=== PATIENT | male | born 1990 | race Caucasian/White ===

== ENCOUNTER 2022-09-11 13:45 | Outpatient (REF) | payer MEDICAID, SELFPAY ==
--- NOTE | ~2022-09-11 | US_ITS ---
Left breast ultrasound is included in a single combined report with the diagnostic bilateral mammography under accession number [id number].
--- NOTE | ~2022-09-11 | MM_ITS ---
EXAMINATION: MM DIAGNOSTIC DIGITAL BREAST TOMOSYNTHESIS, BILATERAL US DIAGNOSTIC ULTRASOUND BREAST, LEFT CLINICAL INFORMATION: 32-year-old male with recent tenderness and palpable concern 1:00 periareolar left breast. No discharge. No prior breast imaging. COMPARISON: None (current study represents initial baseline exam). TECHNIQUE: Digital breast tomosynthesis is performed in both the craniocaudal and mediolateral oblique views along with computer-aided detection (CAD). Synthesized 2D images are generated from the tomosynthesis. Ultrasound left breast is targeted to the retroareolar and periareolar region. Comparison imaging performed retroareolar and periareolar right breast at time of real-time imaging. Grayscale imaging and color Doppler are performed without and with harmonics. FINDINGS: There are scattered areas of fibroglandular density (ACR BI-RADS breast composition Category b). There is some mild bilateral gynecomastia beneath the nipples, slightly greater on left. There is no mass or architectural abnormality. No skin thickening or coarsening of the stromal markings. The axilla are unremarkable. Ultrasound demonstrates no cystic or solid mass or architectural abnormality. No skin thickening or edema tracking in soft tissue planes. There is trace subareolar gynecomastia corresponding to the mammography. Results are discussed with the patient at time of visit. MM/MM tomosynthesis diagnostic BI IMPRESSION: -Mild bilateral gynecomastia, slightly greater on left. ASSESSMENT: BI-RADS 2: Benign RECOMMENDATION: -Patient should be managed based on the clinical impression. -If clinically indicated, further evaluation may be considered with surgical consult. Decision to proceed with biopsy should be based on clinical grounds and degree of clinical concern. This patient's information was entered into a reminder system with a target due date for their next mammogram.
== END 2022-09-11 13:46 | disposition home or self-care (01) ==
LOC: HO.MAMMO 13:45
PROVIDERS: PCP Internal Medicine; Visit Provider Pediatrics
DX: N63.21 Unspecified lump in the left breast, upper outer quadrant (principal); E29.1 Testicular hypofunction
CPT/HCPCS: 76642; 77062; 77066

== ENCOUNTER 2022-09-20 20:37 | Emergency (ER) | payer MEDICAID, SELFPAY ==
[2022-09-20 20:58] VITALS: BP 142/72; PULSE 91; RESP 18; TEMP 36.5; O2SAT 98; BMI 35.6
--- NOTE | 2022-09-20 20:59 | ED.GENADULT ---
HPI - General Adult General Chief complaint: Upper Respiratory Symptoms Stated complaint: Rash Time Seen by Provider: 09/20/22 21:04 Source: patient Mode of arrival: ambulatory Limitations: no limitations History of Present Illness HPI narrative: Patient is a 32 year old assigned male at with no reported medical history presenting to the emergency department today with a rash and needing his prescriptions resent. Patient states that he was seen somewhere else earlier today for a constant cough he's had for weeks. Patient states that where he was seen earlier sent in prednisone, antibiotics, and an inhaler but it was at a [employer] and he needs it sent to a [facility] because that [place] is now closed. Patient states that this rash is where his belt rubs and he just wants cortisone cream. Patient denies any dizziness, lightheadedness, abdominal pain, nausea, vomiting, fever, chills, blurry vision, double vision, loss of vision, chest pain, difficulty breathing, shortness of breath, back pain, night sweats, pain with urination, increased urinary frequency, increased urinary urgency, blood in his urine or stool, syncope or a near syncopal episode, recent trauma or falls, bowel incontinence, bladder incontinence, bowel retention, bladder retention, or any other complaints at this time. Severity: mild Severity scale (1-10): 2 Relieving factors: none Exacerbating factors: none Associated symptoms: cough and rash Treatments prior to arrival: none Related Data Home Medications Medication Instructions Recorded Confirmed tamsulosin 0.4 mg capsule 0.4 mg PO DAILY 09/09/22 Previous Rx's Medication Instructions Recorded albuterol sulfate 90 mcg/actuation 1 inh inhalation QID PRN shortness 09/20/22 aerosol inhaler of breath or wheezing #8.5 grams doxycycline hyclate 100 mg tablet 100 mg PO BID 7 days #14 tabs 09/20/22 hydrocortisone 2.5 % topical cream 1 appl topical BID PRN rash #28 09/20/22 grams prednisone 20 mg tablet 20 mg PO DAILY 7 days #7 tabs 09/20/22 Allergies Allergy/AdvReac Type Severity Reaction Status Date / Time No Known Allergies Allergy Verified 09/20/22 20:58 [No Known Allergies*] Review of Systems Constitutional: Constitutional: Reports no additional constitutional complaints, Denies chills, Denies fever(s) and Denies night sweats Eyes: Eyes: Reports no additional eye complaints, Denies blurry vision, Denies change in vision, Denies diplopia, Denies eye discharge, Denies loss of vision and Denies eye pain ENT: Denies dizziness Cardiovascular: Cardiovascular: Reports no additional cardiovascular complaints, Denies chest pain, Denies lightheadedness, Denies Loss of Consciousness and Denies dyspnea Respiratory: Respiratory: Reports no additional respiratory complaints, Reports cough and Denies dyspnea Gastrointestinal: Gastrointestinal: Reports no additional gastrointestinal complaints, Denies abdominal pain, Denies melena, Denies hematochezia, Denies change in bowel habits and Denies change in stool character Genitourinary: Genitourinary: Reports no additional male genitourinary complaints, Denies hematuria, Denies oliguria, Denies difficulty urinating, Denies dysuria, Denies urinary frequency, Denies urinary hesitancy, Denies urinary incontinence and Denies urinary urgency Musculoskeletal: Musculoskeletal: Reports no additional musculoskeletal complaints, Denies numbness and Denies tingling Integumentary/Breasts: Skin/Breast: Reports rash Neurologic: Denies dizziness, Denies loss of vision, Denies numbness and Denies tingling Psychiatric: Psychiatric: Reports no additional psychiatric complaints Endocrine: Endocrine: Reports no additional endocrine complaints Hematologic/Lymphatic: Hematologic/Lymphatic: Reports no additional hematologic/lymphatic complaints Allergic/Immunologic: Allergic/Immunologic: Reports no additional allergic/immunologic complaints PMFSH Past Medical History Attestation statement: The following information was validated with the patient. Source: old records reviewed and nursing notes reviewed Medical History Arthritis Carpal tunnel syndrome on both sides Nephrolithiasis Surgical History History of arthroscopy Social History Social History Advance Directives: No Advance Directives Information Provided: No Physical Exam ED Vital Signs: Vital Signs - 24 hr 09/20/22 20:58 Temperature 97.7 F Pulse Rate 91 Respiratory Rate 18 Blood Pressure 142/72 H Pulse Oximetry 98 Oxygen Delivery Method Room Air BMI result Body Mass Index 35.6 Const General: cooperative, no acute distress, alert and awake Nutritional Appearance: well nourished Orientation/consciousness: patient oriented x3 Limitations: no limitations HENMT Head: Yes normal to inspection and Yes atraumatic Ears: hearing grossly normal bilaterally and external ears normal General nose exam: Normal external nose present, no nasal discharge noted and no epistaxis Face and sinus: Yes normal facial exam, No abrasion and No laceration Mouth: Normal oral and palatal mucosa present, no drooling and no muffled voice Eyes General: appearance normal, both eyes and all related structures Periorbital: periorbital findings normal Eyelids: Yes eyelids normal Conjunctivae: conjunctivae normal Pupils: Equal, round and reactive pupils present EOM: EOMs intact bilaterally Neck Neck: Yes normal visual inspection, Yes full ROM and Yes no lymphadenopathy Chest Chest palpation & inspection: normal inspection of the chest Resp Effort & Inspection: normal respiratory effort and able to speak in complete sentences Auscultation: clear to auscultation bilaterally GI Inspection: Yes normal to inspection Palpation (GI): Soft to palpation Skin Other: small area of eczema to lower abdomen, no open areas Neuro General: patient oriented x3 and moves all extremities Cranial nerves: Yes Equal, round and reactive pupils present Cognition (Neuro): normal cognition Motor exam (neuro): 5/5 motor strength present throughout Sensory Exam: Normal double simultaneous stimulation for sensation Coordination: [id number] test normal Extrem General: Yes normal to inspection, Yes full ROM and Yes capillary refill normal Psych Appearance: grossly normal Mental Status: mental status grossly normal Affect: normal affect Attitude: cooperative Thought process: Normal thought process present Thought content: Normal thought content present Insight: Good insight present (Psych) Medical Decision Making Medical Decision Making MDM Narrative: Patient is a 32 year old assigned male at with no reported medical history presenting to the emergency department today with requesting medications to be sent in again and a rash. Patient's physical exam showed a small eczema rash to the lower abdomen. I explained my physical exam findings to the patient. I answered all questions asked by the patient. I stressed the importance of the patient taking his medication as prescribed. I stressed the importance of the patient following up with his primary care provider. I stressed the importance of the patient returning to the emergency department immediately if his symptoms were to worsen or if he were to develop any dizziness, shortness of breath, difficulty breathing, chest pain, blurry vision, loss of vision, nausea, vomiting, abdominal pain, fever, chills, back pain, or any other complaints. Patient verbalized agreement and understanding with this treatment plan and discharge. Differential Diagnosis Differential Diagnoses: The differential diagnosis associated with the presentation includes Eczema, URI Discharge Plan Discharge Clinical Impression: URI (upper respiratory infection) Patient Disposition: Home, Self-Care Instructions: Eczema (ED), Upper Respiratory Infection (ED) Additional Instructions: Follow up with your primary care provider. Return to the emergency department immediately if your symptoms worsen or if you develop any dizziness, shortness of breath, difficulty breathing, chest pain, blurry vision, loss of vision, nausea, vomiting, abdominal pain, fever, chills, back pain, or any other complaints. Prescriptions: New prednisone 20 mg tablet 20 mg PO DAILY 7 Days Qty: 7 0RF doxycycline hyclate 100 mg tablet 100 mg PO BID 7 Days Qty: 14 0RF albuterol sulfate 90 mcg/actuation HFA aerosol inhaler 1 inh inhalation QID PRN (Reason: shortness of breath or wheezing) Qty: 8.5 0RF hydrocortisone 2.5 % cream 1 appl topical BID PRN (Reason: rash) Qty: 28 0RF No Action tamsulosin 0.4 mg capsule 0.4 mg PO DAILY Referrals: John Mcintosh MD [Primary Care Provider] - Stand Alone Forms: Work/School Release Interventions: ED Discharge Assessment Last Done: 09/20/22 21:11 Discharge Date/Time: 09/20/22 21:12 Print Language: Croatian
--- NOTE | 2022-09-20 21:04 | PC.NURSE ---
pt a&ox3, vss, rx called into [facility], [facility], discussed insurance options vs good rx.
== END 2022-09-20 21:12 | disposition home or self-care (01) ==
LOC: HO.ED 21:08
PROVIDERS: Emergency Provider Student in an Organized Health Care Education/Training Program; PCP Internal Medicine
DX: J06.9 Acute upper respiratory infection, unspecified (principal); L30.9 Dermatitis, unspecified
CPT/HCPCS: 99282; 99283

== ENCOUNTER → 2022-10-10 12:40 | Outpatient (BNVA) | payer MEDICAID, SELFPAY | PROVIDERS: PCP Internal Medicine; Visit Provider Urology | DX: Z12.5 Encounter for screening for malignant neoplasm of prostate (principal); N52.9 Male erectile dysfunction, unspecified; E29.1 Testicular hypofunction | CPT/HCPCS: 99202 ==

== ENCOUNTER 2022-10-22 10:05 | Outpatient (REF) | payer MEDICAID, SELFPAY | END 2022-10-22 10:06 | disposition home or self-care (01) | LOC: HO.LAB 10:05 | PROVIDERS: PCP Internal Medicine; Visit Provider Urology | DX: Z13.89 Encounter for screening for other disorder (principal) ==

== ENCOUNTER → 2022-10-31 09:06 | Outpatient (BNVA) | payer MEDICAID, SELFPAY | PROVIDERS: PCP Internal Medicine; Visit Provider Urology | DX: N52.9 Male erectile dysfunction, unspecified (principal); E29.1 Testicular hypofunction | CPT/HCPCS: 99212 ==

== ENCOUNTER 2022-11-06 22:14 | Emergency (ER) | payer MEDICAID, SELFPAY ==
[2022-11-06 22:18] VITALS: BP 132/67; PULSE 86; RESP 18; TEMP 36.7; O2SAT 97; BMI 34.9
[2022-11-07] MEDS: Fluorescein Sodium STRIP 1 STRIP EYE-RIGHT (01:03)
[2022-11-07] MEDS: Tetracaine HCl/PF 0.5% Oph Sol 4 ML DROPS 1 DROP EYE-BOTH (01:03)
--- NOTE | 2022-11-07 01:07 | ED_ITS ---
HPI - Eye Problem General Chief complaint: Eye Problems Stated complaint: [place] eye? Time Seen by Provider: 11/07/22 00:49 Source: patient Mode of arrival: ambulatory Limitations: no limitations History of Present Illness HPI Narrative: Patient comes to the emergency room complaining of left-sided eye redness that started last night. Patient states the progressively it is getting more red. Patient states he has minimal discharge, no significant pain, denies any injury. Related Data Previous Rx's Medication Instructions Recorded needle (disp) 18 G 18 gauge x 1 #30 ea 10/31/22 12 (BD Regular Bevel [place]) needle (disp) 22 G 22 gauge x 1 #30 ea 10/31/2207/14 (BD Regular Bevel [place]) syringe (disposable) 1 mL (BD #30 ea 10/31/22 Luer-Amie Syringe) testosterone cypionate 200 mg/mL 100 mg (0.5 mL) IM QWEEK 4 weeks 10/31/22 intramuscular oil #2 mL (Depo-Testosterone) erythromycin 5 mg/gram (0.5 %) eye 0.5 inch ophthalmic (eye) TID #50 11/07/22 ointment grams ibuprofen 400 mg tablet 400 mg PO Q6H PRN pain #14 tabs 11/07/22 Allergies Allergy/AdvReac Type Severity Reaction Status Date / Time No Known Allergies Allergy Verified 11/06/22 22:22 [No Known Allergies*] Review of Systems Review of Systems: Constitutional : No Weight loss, No Fever, No Chills, No Night Sweats, No Fatigue, No Malaise ENT/Mouth : No Hearing loss, No Ear Pain, No Nasal Congestion, No Sinus Pain, No Hoarseness, No sore throat, No Rhinorrhea, No Swallowing Difficulty Eyes: No Eye Pain, No Swelling, complaining of scleral redness Cardiovascular : No Chest Pain, No SOB, No Dyspnea on Exertion, No Orthopnea, No Edema, No Palpitations Respiratory : No Cough, No Sputum, No Wheezing, No Smoke Exposure, No Dyspnea Gastrointestinal : No Nausea, No Vomiting, No Diarrhea, No Constipation, No abdominal Pain, No Hematochezia, No Melena Genitourinary : no irregular bleeding, No Dysuria, No Urinary Frequency, No Hematuria, No Urinary Incontinence, No Urgency, No Flank Pain, No Urinary Flow Changes, No Hesitancy Musculoskeletal : No joint pain, No Myalgias, No Joint Swelling Skin : No Skin Lesions, No rash Neuro : No Weakness, No Numbness, No Paresthesias, No Loss of Consciousness, No Dizziness, No Headache Psych : No Anxiety/Panic, No Depression, No SI/HI/AH/VH, No Social Issues, Heme/Lymph: No Bruising, No Bleeding,No Lymphadenopathy Endocrine : No Polyuria, No Polydipsia, No Temperature Intolerance [facility] Past Medical History Medical History Arthritis Carpal tunnel syndrome on both sides Nephrolithiasis Surgical History History of arthroscopy Social History Social History Advance Directives: No Advance Directives Information Provided: Yes Physical Exam Vital Signs: Vital Signs: Last Vital Signs Temp 98.1 F 11/06/22 22:18 Pulse 86 11/06/22 22:18 Resp 18 11/06/22 22:18 BP 132/67 11/06/22 22:18 Pulse Ox 97 11/06/22 22:18 O2 Del Method Room Air 11/06/22 22:18 BMI result Body Mass Index 34.9 Const: Other: Appearance: Alert. Oriented X3. No acute distress. Eyes: Pupils equal, round and reactive to light. The sclera lateral aspect of the left eye is erythematous, there is a nodule, mild discharge, eye pressure 60 mmHg, on fluorescein stain test, no corneal abrasion ENT: Pharynx normal. Neck: Normal inspection. Neck supple. No lymph nodes noted. No crepitus CVS: Normal heart rate and rhythm. Pulses normal. Normal S1 and S2 Respiratory: No respiratory distress. Breath sounds normal. No Wheezing. No rales Abdomen: Soft and nontender. No rigidity. No distention. Skin: Skin warm and dry. Normal skin color. Normal skin turgor. Extremities: No lower extremity edema. No Lacerations. No Rash Neuro: Oriented X 3. No motor deficit. No sensory deficit. Moving all extremities. No slurred speech. CN 2 through 12 grossly intact Psych: calm, cooperative, normal affect Medications Administered Discontinued Medications Generic Name Dose Route Start Last Admin Trade Name Freq PRN Reason Stop Dose Admin Fluorescein Sodium 1 strip 11/07/22 00:52 11/07/22 01:03 Fluorescein Sodium Strip EYE-RIGHT 11/07/22 00:53 1 strip ONCE ONE Administration Tetracaine HCl 1 drop 11/07/22 00:52 11/07/22 01:03 Tetracaine Hcl/Pf 0.5% Oph Yoanna 4 Ml Drops EYE-BOTH 11/07/22 00:53 1 drop ONCE ONE Administration Medical Decision Making Medical Decision Making [facility] Narrative: -I discussed the physical exam with the patient, 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 If you have any worsening or new symptoms, please return to the emergency room or call 911 Prescriptions: New erythromycin 5 mg/gram (0.5 %) ointment 0.5 inch ophthalmic (eye) TID Qty: 50 0RF ibuprofen 400 mg tablet 400 mg PO Q6H PRN (Reason: pain) Qty: 14 0RF No Action (DME) BD Regular Bevel [place] 18 gauge x 1 1/2 needle See Rx Instructions .MEDSUPPLY Qty: 30 0RF Rx Instructions: As directed (DME) BD Regular Bevel [place] 22 gauge x 1 1/2 needle See Rx Instructions .MEDSUPPLY Qty: 30 0RF Rx Instructions: For testosterone injection weekly (DME) BD Luer-Amie Syringe 1 mL syringe See Rx Instructions .MEDSUPPLY Qty: 30 0RF Rx Instructions: Testosterone injection weekly testosterone cypionate [Depo-Testosterone] 200 mg/mL oil 100 mg IM QWEEK 28 Days Qty: 2 5RF
== END 2022-11-07 01:45 | disposition home or self-care (01) ==
PROVIDERS: Emergency Provider Emergency Medicine; PCP Internal Medicine
DX: H15.002 Unspecified scleritis, left eye (principal)
CPT/HCPCS: 99282; 99283

== ENCOUNTER 2023-02-03 08:56 | Outpatient (REF) | payer MEDICAID, SELFPAY ==
[2023-02-03 14:23] LABS: Appearance Urine Clear; Color Urine Dark Yellow; Glucose Urine UA Negative (Negative); Leukocyte Esterase Urine Negative (Negative); Nitrite Urine Negative (Negative); PH 6.5 (5.0-9.0); Urine Blood Negative (Negative); Urine Ketones Negative (Negative); Urine Protein Trace mg/dL (Neg-Trace)
[2023-02-03 17:42] LABS: Prostate Specific Antigen 0.42 ng/mL (<0.05-4.0)
[2023-02-04 20:53] LABS: Sex Hormone Binding Globulin 10 nmol/L (10-50)
[2023-02-04 22:18] LABS: Follicle Stimulating Hormone <0.7 mIU/mL (1.6-8.0); Lutenizing Hormone <0.2 mIU/mL (1.5-9.3)
[2023-02-08 17:43] LABS: Testosterone, Free 89.6 pg/mL (35.0-155.0); Testosterone, Total 337 ng/dL (250-1100)
[2023-02-13 21:44] LABS: Estradiol Free 0.94 pg/mL; Estradiol, Ultrasensitive 29 pg/mL (< OR = 29)
== END 2023-02-03 08:57 | disposition home or self-care (01) ==
LOC: HO.CHCLDS 08:56
PROVIDERS: Absent Provider Urology; Visit Provider Internal Medicine
DX: Z12.5 Encounter for screening for malignant neoplasm of prostate (principal); E29.1 Testicular hypofunction
CPT/HCPCS: 36415; 81003; 82670; 82681; 83001; 83002; 84146; 84153; 84270; 84402; 84403

== ENCOUNTER 2023-02-11 11:00 | Outpatient (AMB) | payer MEDICAID, SELFPAY ==
--- NOTE | 2023-02-11 11:01 | A.OFFVIS_ITS ---
Intake Intake Visit Reasons: Labs Follow up Intake Note: Patient is present for Telephone labs Urology Med: Testosterone Antibiotic Allergy: none Blood Thinner: none [facility] Allergies No Known Allergies [No Known Allergies*] Allergy (Verified 11/06/22 22:22) Medication List - Last Reconciled 02/11/23 by Suleman Colin MD erythromycin 0.5 inches ophthalmic (eye) TID ibuprofen 400 mg PO Q6H PRN needle (disp) 18 G (BD Regular Bevel [place]) As directed needle (disp) 22 G (BD Regular Bevel [place]) For testosterone injection weekly syringe (disposable) (BD Luer-Amie Syringe) Testosterone injection weekly testosterone cypionate (Depo-Testosterone) 100 mg (0.5 mL) IM QWEEK 4 weeks HPI HPI Comments History of Present Illness Details Jd is male. He is a patient of . 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 Previously taken testosterone exogenous - including nandralone Prior supplement use Also with weekly marijuana use Prior complains of nipple discharge Laboratories - 05/31 T 397 F 77 - 11/02 T 150, FT 27 - 02/01 T 340 FT 90 FSH <0.1 LH <0.2 SHBG 10 PFSH Medical History Arthritis Carpal tunnel syndrome on both sides Nephrolithiasis Surgical History History of arthroscopy Assessment & Plan Assessment & Plan (1) Erectile disorder: Code(s): N52.9 - Male erectile dysfunction, unspecified (2) Hypogonadism in male: Code(s): E29.1 - Testicular hypofunction Plan Refill testosterone Start HCG 6 month follow-up labs Orders: Orders Prolactin 02/06/23 E29.1 - Testicular hypofunction Lutenizing Hormone 02/06/23 E29.1 - Testicular hypofunction Glucose Fasting 02/06/23 E29.1 - Testicular hypofunction Estradiol Ultra Sensitive 02/06/23 E29.1 - Testicular hypofunction Follicle Stimulating Hormone 02/06/23 E29.1 - Testicular hypofunction PSA,Total (Free>4and<10) 02/06/23 E29.1 - Testicular hypofunction, Z12.5 - Encounter for screening for malignant neoplasm of prostate Sex Hormone Binding Globulin 01/20/23 E29.1 - Testicular hypofunction Estradiol Ultra Sensitive 6 Months E29.1 - Testicular hypofunction Testosterone, Free/Total 6 Months E29.1 - Testicular hypofunction Complete Blood Count no Diff 6 Months E29.1 - Testicular hypofunction Medications: New Pregnyl (chorionic gonadotropin, human) 10,000 mix in 5cc of NSal Inject 0.5cc (1000 units) 2x a week intramuscular 500 units IM 2XW 2 ea 1RF Low T - fertility preservation 10 weeks NS E29.1 - Testicular hypofunction Refilled testosterone cypionate (Depo-Testosterone) 100 mg (0.5 mL) IM QWEEK 4 weeks 2 mL 5RF E29.1 - Testicular hypofunction, [id number] Patient Instructions: Imaging studies, laboratory and physical exam results were discussed and reviewed in detail. No major barriers to patient understanding were identified. An opportunity to ask questions regarding the treatment plan was provided. All questions were answered. The patient expressed understanding and agreement with the above treatment plan. The patient is aware they should contact our office by phone for worsening of their current condition or the appearance of new urologic symptoms. Compliance is encouraged with any medications and followup testing that is ordered. It is a privilege to participate in the urologic care of your patient. If you have any questions or concerns regarding treatment for the above conditions, or other urologic issues, please do not hesitate to contact me. The office telephone contact is [phone]. This note is constructed using voice recognition software. While every effort has been made to ensure accuracy business liaison manager errors may have been included. Yours sincerely, Dr Suleman Colin MD, [facility] - Urology Providers of Expert, Compassionate Care for the Genitourinary System Telehealth Telehealth Location of provider rendering services: practice address Location of patient: address on file Patient Identification confirmed using: Name, : Yes Telehealth method: video Patient verbally consented to treatment: Yes Patient verbally consented to billing insurance company: Yes Patient informed of any privacy concerns related to visit: Yes Coding Level of Care Code Tele Est Pt Level 4 (15575) Diagnoses Erectile disorder N52.9 Hypogonadism in male E29.1
== END 2023-02-11 11:39 | disposition home or self-care (01) ==
LOC: HO.HUSH 11:00
PROVIDERS: PCP Internal Medicine; Visit Provider Urology
DX: N52.9 Male erectile dysfunction, unspecified (principal); E29.1 Testicular hypofunction
CPT/HCPCS: 99214

== ENCOUNTER → 2023-02-11 11:00 | Outpatient (BNVA) | payer MEDICAID, SELFPAY | PROVIDERS: PCP Internal Medicine; Visit Provider Urology ==

== ENCOUNTER 2023-08-19 08:35 | Outpatient (REF) | payer MEDICAID, SELFPAY ==
[2023-08-19 14:43] LABS: Hematocrit 47.6 % (42.0-52.0); Hemoglobin 16.7 g/dl (14.0-18.0); Mean Corpuscular HGB Conc 35.1 g/dl (31.0-36.0); Mean Corpuscular Hemoglobin 30.8 pg (27.0-33.0); Mean Corpuscular Volume 87.7 fL (80.0-98.0); Mean Platelet Volume 10.9 fL (9.4-12.4); Platelet Count 164 X10*3/uL (160-400); Red Blood Count 5.43 X10*6/uL (4.60-5.80); Red Cell Distribution Width 14.5 % (11.0-16.0); White Blood Count 5.5 X10*3/uL (4.8-10.8)
[2023-08-24 02:20] LABS: Estradiol Ultra Sensitive 20 pg/mL (< OR = 29)
[2023-08-24 13:39] LABS: Testosterone, Free 53.1 pg/mL (35.0-155.0); Testosterone, Total 236 ng/dL (250-1100)
== END 2023-08-19 08:36 | disposition home or self-care (01) ==
LOC: HO.CHCLDS 08:35
PROVIDERS: Visit Provider Urology
DX: E29.1 Testicular hypofunction (principal)
CPT/HCPCS: 36415; 82670; 84402; 84403; 85027

== ENCOUNTER 2023-09-16 08:15 | Outpatient (AMB) | payer MEDICAID, SELFPAY ==
--- NOTE | 2023-09-16 08:16 | A.OFFVIS_ITS ---
Intake Intake Visit Reasons: labs follow up(set) Intake Note: Patient presents today for a telehealth follow-up on labs Meds- Testosterone Allergies to Antibiotic- No Known Allergies Machine Captain Required: No Allergies No Known Allergies [No Known Allergies*] Allergy (Verified 09/16/23 08:17) Medication List - Last Reconciled 09/16/23 by Suleman Colin MD erythromycin 0.5 inches ophthalmic (eye) TID ibuprofen 400 mg PO Q6H PRN needle (disp) 18 G (BD Regular [place]vel [place]) As directed needle (disp) 18 G (BD Regular Bevel [place]) As directed - draw up testosterone needle (disp) 22 G (BD Regular Bevel [place]) For testosterone injection weekly Pregnyl (chorionic gonadotropin, human) 500 units IM 2XW 10 weeks NS safety needles (Easy Touch FlipLock Needle) As directed - administer testosterone syringe (disposable) (BD Luer-Amie Syringe) Testosterone injection weekly testosterone cypionate (Depo-Testosterone) 100 mg (0.5 mL) IM QWEEK 4 weeks HPI HPI Comments History of Present Illness Details Jd is male. He is a patient of . He is seen for the following urologic conditions - hypogonadism Telemedicine Evaluation 15 min Consultation Doximity Andrés Video attempted Total testosterone low. Low normal free testosterone. 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 Previously taken testosterone exogenous - including nandralone Prior supplement use Also with weekly marijuana use Prior complains of nipple discharge Laboratories - 05/31 T 397 F 77 - 11/02 T 150, FT 27 - 02/01 T 340 FT 90 FSH <0.1 LH <0.2 SHBG 09/05 (wed) T 236, FT 53 PFSH Medical History Arthritis Carpal tunnel syndrome on both sides Nephrolithiasis Surgical History History of arthroscopy Review of Systems Const All systems reviewed & are unremarkable except as noted in HPI and below Reports no additional complaints Resp Reports no additional complaints GI Reports no additional complaints Reports as per HPI Musc Reports no additional complaints Physical Exam Telemedicine evaluation Appropriate responses Regular breathing rate and rhythm HEENT Head: Yes normal to inspection Ears: hearing grossly normal bilaterally Eyes General: appearance normal, both eyes and all related structures Neck Neck: Yes normal visual inspection Chest Chest palpation & inspection: normal inspection of the chest Resp Effort & Inspection: normal respiratory effort and able to speak in complete sentences Assessment & Plan Assessment & Plan (1) Erectile disorder: Code(s): N52.9 - Male erectile dysfunction, unspecified (2) Hypogonadism in male: Code(s): E29.1 - Testicular hypofunction Plan Six-month follow-up Orders: Orders Prostate Specific Antigen 6 Months E29.1 - Testicular hypofunction Testosterone, Total 6 Months E29.1 - Testicular hypofunction Complete Blood Count no Diff 6 Months E29.1 - Testicular hypofunction Medications: New safety needles (Easy Touch FlipLock Needle) As directed - administer testosterone 30 ea 0RF E29.1 - Testicular hypofunction needle (disp) 18 G (BD Regular Bevel [place]) As directed - draw up testosterone 30 ea 0RF E29.1 - Testicular hypofunction Refilled testosterone cypionate (Depo-Testosterone) discard excess oil 100 mg (0.5 mL) IM QWEEK 4 mL 5RF 4 weeks E29.1 - Testicular hypofunction, [id number] Patient Instructions: Imaging studies, laboratory and physical exam results were discussed and reviewed in detail. No major barriers to patient understanding were identified. An opportunity to ask questions regarding the treatment plan was provided. All questions were answered. The patient expressed understanding and agreement with the above treatment plan. The patient is aware they should contact our office by phone for worsening of their current condition or the appearance of new urologic symptoms. Compliance is encouraged with any medications and followup testing that is ordered. It is a privilege to participate in the urologic care of your patient. If you have any questions or concerns regarding treatment for the above conditions, or other urologic issues, please do not hesitate to contact me. The office telephone contact is [phone]. This note is constructed using voice recognition software. While every effort has been made to ensure accuracy cane feeder errors may have been included. Yours sincerely, Dr Suleman Colin MD, [facility] - Urology Providers of Expert, Compassionate Care for the Genitourinary System Telehealth Telehealth Location of provider rendering services: practice address Location of patient: address on file Patient Identification confirmed using: Name, : Yes Telehealth method: video Patient verbally consented to treatment: Yes Patient verbally consented to billing insurance company: Yes Patient informed of any privacy concerns related to visit: Yes Coding Level of Care Code Tele Est Pt Level 3 (21548) Diagnoses Erectile disorder N52.9 Hypogonadism in male E29.1
== END 2023-09-16 10:13 | disposition home or self-care (01) ==
LOC: HO.HUSH 08:15
PROVIDERS: PCP Internal Medicine; Visit Provider Urology
DX: N52.9 Male erectile dysfunction, unspecified (principal); E29.1 Testicular hypofunction
CPT/HCPCS: 99213

== ENCOUNTER → 2023-09-16 08:15 | Outpatient (BNVA) | payer MEDICAID, SELFPAY | PROVIDERS: PCP Internal Medicine; Visit Provider Urology ==

== ENCOUNTER 2023-09-16 19:36 | Emergency (ER) | payer MEDICAID, SELFPAY ==
[2023-09-16 19:42] VITALS: BP 142/77; PULSE 84; RESP 18; TEMP 36.7; O2SAT 96; BMI 35.6
--- NOTE | 2023-09-16 19:42 | ED_ITS ---
<Statement entered by Lashanda Lepe NP - 10/02/23 21:19> In error HPI - Eye Problem General Chief complaint: Eye Problems Stated complaint: eye infection, peeling of inner eyelid Source: patient Mode of arrival: ambulatory Limitations: no limitations History of Present Illness HPI Narrative: Complaints bilateral reddened eyes with white discharge. States that he works outside with [employer] equipment and that he may have gotten foreign body in the eyes. Denies vision changes Related Data Previous Rx's Medication Instructions Recorded needle (disp) 18 G 18 gauge x 1 #30 ea 10/31/22 1/2 (BD Regular Bevel [place]) needle (disp) 22 G 22 gauge x 1 #30 ea 10/31/22 12 (BD Regular Bevel [place]) syringe (disposable) 1 mL (BD #30 ea 10/31/22 Luer-Amie Syringe) erythromycin 5 mg/gram (0.5 %) eye 0.5 inch ophthalmic (eye) TID #50 11/07/22 ointment grams ibuprofen 400 mg tablet 400 mg PO Q6H PRN pain #14 tabs 11/07/22 Pregnyl 10,000 unit intramuscular 500 unit IM 2XW Low T - fertility 02/12/23 solution (chorionic gonadotropin, preservation 10 weeks #2 ea human) ciprofloxacin HCl 0.3 % eye drops 1 drp ophthalmic (eye) Q2H 5 days 09/16/23 #5 mL erythromycin 5 mg/gram (0.5 %) eye 1 appl ophthalmic (eye) DAILY #3.5 09/16/23 ointment grams needle (disp) 18 G 18 gauge x 1 #30 ea 09/16/23 (BD Regular Bevel [place]) safety needles 23 gauge x 5/8 #30 ea 09/16/23 (Easy Touch FlipLock Needle) testosterone cypionate 200 mg/mL 100 mg (0.5 mL) IM QWEEK 4 weeks 09/16/23 intramuscular oil #4 mL (Depo-Testosterone) Allergies Allergy/AdvReac Type Severity Reaction Status Date / Time No Known Allergies Allergy Verified 09/16/23 19:46 [No Known Allergies*] Review of Systems Review of Systems: Yes all other systems are reviewed and are negative PMFSH Past Medical History Medical History Arthritis Carpal tunnel syndrome on both sides Nephrolithiasis Surgical History History of arthroscopy Social History Social History Advance Directives: No Advance Directives Information Provided: No Physical Exam Vital Signs: Vital Signs: Last Vital Signs Temp 98.1 F 09/16/23 19:42 Pulse 84 09/16/23 19:42 Resp 18 09/16/23 19:42 BP 142/77 H 09/16/23 19:42 Pulse Ox 96 09/16/23 19:42 O2 Del Method Room Air 09/16/23 19:42 BMI result Body Mass Index 35.6 Nursing notes and vital signs reviewed. GENERAL APPEARANCE: A&0 x 4, generally well appearing, no acute distress HENMT: Normal to inspection, atraumatic, face symmetrical. Normal external ears, nose, and oropharynx clear. EYE: PERRLA, EOM intact, structures appear normal NECK: Supple without stiffness or restricted ROM. HEART: Normal rate and regular rhythm, normal S1/S2, no M/R/G LUNGS: LS CTA, moving air well. Able to speak in complete sentences. No crackles, wheezes, or rhonchi auscultated BACK: No CVAT, no obvious deformity EXTREMITIES: Moving all extremities without difficulty. Normal capillary refill. NEUROLOGICAL: Alert and oriented, moving all 4 extremities with equal strength. CN not formally tested but appearing grossly intact. Observed to ambulate with normal gait. Cognition normal SKIN: Warm and dry without any lesions, rash, or visible sores Medical Decision Making Medical Decision Making MDM Narrative: Old records reviewed for previous imaging, lab studies, ECGs, and notes. Patient was assessed the emergency department with no acute distress or toxicity noted. Antibiotic ointment and hydrops intubation preferred pharmacy for management of conjunctivitis. Patient is safe for discharge at this time with plan for [id number] Tylenol and/or NSAID such as ibuprofen or naproxen for fever/discomfort with dosing as per packaging. HPI, PE, diagnostics, and plan discussed with patient and family with no unanswered questions at this time. Strict return precautions given to return to the emergency department with new, worsening, or concerning emergent symptoms. Recommended to follow-up with there primary care provider in 24-48 hours for further treatment and management. Discharge Plan Discharge Clinical Impression: Conjunctivitis Patient Disposition: Home, Self-Care Instructions: Conjunctivitis (ED) Prescriptions: New erythromycin 5 mg/gram (0.5 %) ointment 1 appl ophthalmic (eye) DAILY Qty: 3.5 0RF Rx Instructions: 1 inch strip at bedtime in both eyes for 7 days ciprofloxacin HCl 0.3 % drops 1 drp ophthalmic (eye) Q2H 5 Days Qty: 5 0RF Rx Instructions: administer 1-2 drops, every 2 hours while awake, for the next 5 days No Action chorionic gonadotropin, human [Pregnyl] 10,000 unit recon soln 500 unit IM 2XW 70 Days Qty: 2 1RF Rx Instructions: 10,000 mix in 5cc of NSal Inject 0.5cc (1000 units) 2x a week intramuscular erythromycin 5 mg/gram (0.5 %) ointment 0.5 inch ophthalmic (eye) TID Qty: 50 0RF ibuprofen 400 mg tablet 400 mg PO Q6H PRN (Reason: pain) Qty: 14 0RF (DME) BD Regular Bevel [place] 18 gauge x 1 1/2 needle See Rx Instructions .MEDSUPPLY Qty: 30 0RF Rx Instructions: As directed (DME) BD Regular Bevel [place] 22 gauge x 1 1/2 needle See Rx Instructions .MEDSUPPLY Qty: 30 0RF Rx Instructions: For testosterone injection weekly (DME) BD Luer-Amie Syringe 1 mL syringe See Rx Instructions .MEDSUPPLY Qty: 30 0RF Rx Instructions: Testosterone injection weekly (DME) needle (disp) 18 G [BD Regular Bevel [place]] 18 gauge x 1 needle See Rx Instructions .Route Qty: 30 0RF Rx Instructions: As directed - draw up testosterone (DME) Easy Touch FlipLock Needle 23 gauge x 5/8 needle See Rx Instructions .Route Qty: 30 0RF Rx Instructions: As directed - administer testosterone testosterone cypionate [Depo-Testosterone] 200 mg/mL oil 100 mg IM QWEEK 28 Days Qty: 4 5RF Rx Instructions: discard excess oil Referrals: John Mcintosh MD [Primary Care Provider] - Stand Alone Forms: Work/School Release Interventions: ED Discharge Assessment Last Done: 09/16/23 20:12 Discharge Date/Time: 09/16/23 20:13 Print Language: Venezuelan
== END 2023-09-16 20:13 | disposition home or self-care (01) ==
PROVIDERS: Emergency Provider Emergency Medicine; PCP Internal Medicine
DX: H10.9 Unspecified conjunctivitis (principal)
CPT/HCPCS: 99282

== ENCOUNTER 2024-03-30 08:30 | Outpatient (REF) | payer MEDICAID, SELFPAY ==
[2024-03-30 14:36] LABS: Hematocrit 50.5 % (42.0-52.0); Hemoglobin 17.8 g/dl (14.0-18.0); Mean Corpuscular HGB Conc 35.2 g/dl (31.0-36.0); Mean Corpuscular Hemoglobin 31.4 pg (27.0-33.0); Mean Corpuscular Volume 89.1 fL (80.0-98.0); Mean Platelet Volume 10.3 fL (9.4-12.4); Platelet Count 199 X10*3/uL (160-400); Red Blood Count 5.67 X10*6/uL (4.60-5.80); Red Cell Distribution Width 13.4 % (11.0-16.0); White Blood Count 5.8 X10*3/uL (4.8-10.8)
[2024-03-30 15:04] LABS: Prostate Specific Antigen 0.65 ng/mL (<0.05-4.0)
[2024-04-05 01:43] LABS: Testosterone, Total 717 ng/dL (250-1100)
== END 2024-03-30 08:31 | disposition home or self-care (01) ==
LOC: HO.CHCLDS 08:30
PROVIDERS: Visit Provider Urology
DX: Z12.5 Encounter for screening for malignant neoplasm of prostate (principal); E29.1 Testicular hypofunction
CPT/HCPCS: 36415; 84153; 84403; 85027

== ENCOUNTER 2024-05-18 10:17 | Outpatient (AMB) | payer MEDICAID, SELFPAY ==
--- NOTE | 2024-05-18 10:13 | A.OFFVIS_ITS ---
Intake Visit Reasons: Med refill(Testosterone) Intake Note: Patient is present for MED REFILL (TESTOSTERONE) Urology Medication:TESTOSTERONE,PREGNYL Antibiotic Allergy:NONE Blood Thinner:NONE Hair Colorist Required: No Allergies No Known Allergies [No Known Allergies*] Allergy (Verified 05/18/24 10:15) HPI Comments Details: Jd is male. He is a patient of . 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 Previously taken testosterone exogenous - including nandralone Prior supplement use Also with weekly marijuana use Prior complains of nipple discharge Laboratories - 05/31 T 397 F 77 - 11/02 T 150, FT 27 - 02/01 T 340 FT 90 FSH <0.1 LH <0.2 SHBG 09/05 (thu) T 236, FT 53, 04/05 717 0.65 PFSH Medical History Arthritis Carpal tunnel syndrome on both sides Nephrolithiasis Surgical History History of arthroscopy Review of Systems Const All systems reviewed & are unremarkable except as noted in HPI and below Reports no additional complaints Resp Reports no additional complaints GI Reports no additional complaints Reports as per HPI Musc Reports no additional complaints Physical Exam Telemedicine evaluation Appropriate responses Regular breathing rate and rhythm HEENT Head: Yes normal to inspection Ears: hearing grossly normal bilaterally Eyes General: appearance normal, both eyes and all related structures Neck Neck: Yes normal visual inspection Chest Chest palpation & inspection: normal inspection of the chest Resp Effort & Inspection: normal respiratory effort and able to speak in complete sentences Telehealth Telehealth Location of provider rendering services: practice address Location of patient: address on file Patient Identification confirmed using: Name, : Yes Telehealth method: voice only Patient verbally consented to treatment: Yes Patient verbally consented to billing insurance company: Yes Patient informed of any privacy concerns related to visit: Yes Assessment & Plan Assessment & Plan (1) Hypogonadism in male: Code(s): E29.1 - Testicular hypofunction Category: Medical Plan Continue with medications Refill provided Orders: Orders Prostate Specific Antigen 6 Months E29.1 - Testicular hypofunction Testosterone, Total 6 Months E29.1 - Testicular hypofunction Complete Blood Count no Diff 6 Months E29.1 - Testicular hypofunction Medications: Refilled testosterone cypionate (Depo-Testosterone) discard excess oil 100 mg (0.5 mL) IM QWEEK 4 weeks 4 mL 5RF E29.1 - Testicular hypofunction, [id number] Patient Instructions: Imaging studies, laboratory and physical exam results were discussed and reviewed in detail. No major barriers to patient understanding were identified. An opportunity to ask questions regarding the treatment plan was provided. All questions were answered. The patient expressed understanding and agreement with the above treatment plan. The patient is aware they should contact our office by phone for worsening of their current condition or the appearance of new urologic symptoms. Compliance is encouraged with any medications and followup testing that is ordered. It is a privilege to participate in the urologic care of your patient. If you have any questions or concerns regarding treatment for the above conditions, or other urologic issues, please do not hesitate to contact me. The office telephone contact is [phone]. This note is constructed using voice recognition software. While every effort has been made to ensure accuracy marine architect errors may have been included. Yours sincerely, Dr Suleman Colin MD, [facility] - Urology Providers of Expert, Compassionate Care for the Genitourinary System Coding Level of Care Code Tele Est Pt Level 3 (52683) Diagnoses Hypogonadism in male E29.1
== END 2024-05-18 10:52 | disposition home or self-care (01) ==
LOC: HO.HUSH 10:17
PROVIDERS: PCP Internal Medicine; Visit Provider Urology
DX: E29.1 Testicular hypofunction (principal)
CPT/HCPCS: 99213

== ENCOUNTER → 2024-05-18 10:17 | Outpatient (BNVA) | payer MEDICAID, SELFPAY | PROVIDERS: PCP Internal Medicine; Visit Provider Urology ==

== ENCOUNTER 2024-11-17 10:57 | Outpatient (REF) | payer MEDICAID, SELFPAY ==
--- OUTSIDE RECORDS SUMMARY | 2024-11-17 12:30 | XMS_ITS | Clinical Summary ---
Author Organization [facility] Address [address] [place] [address] Care Team Providers Care Dental Front Office Assistant Name Role Phone John Mcintosh MD Primary Care Provider Allergies No known active allergies Active Problems Problem Noted Date Diagnosed Date Vitamin D deficiency 10/25/2021 Hypogonadism in male 10/25/2021 Encounters Date Type Department Care Team Description 09/23/2024 Population Health Risk Score [facility] Department [address] [id number] Provider, Population Health Generic from Last 3 Months Social History Tobacco Use Types Packs/Day Years Used Date Smoking Tobacco: Never Assessed Sex and Gender Information Value Date Recorded Sex Assigned at Male 05/12/2022 10:24 AM EDT Legal Sex Male 10:24 AM EDT Gender Identity Male 05/12/2022 10:24 AM EDT Sexual Orientation Straight 05/12/2022 10 :24 AM EDT Last Filed Vital Signs Vital Sign Reading Time Taken Comments Blood Pressure 140/90 08/29/2022 10:08 AM EST Pulse 82 08/29/2022 10:08 AM EST Temperature 36.2 ??C (97.2 ??F) 08/29/2022 10:[address] Respiratory Rate 16 08/29/2022 10:08 AM EST Oxygen Saturation 98% 08/29/2022 10:08 AM EST Inhaled Oxygen Concentration - - Weight 123 kg (271 lb) 08/29/2022 10:08 AM EST Height 185.4 cm (6' 1 ) 08/29/2022 10:08 AM EST Body Mass Index 35.75 08/29/2022 10:08 AM EST Plan of Treatment Health Maintenance Due Date Last Done Comments Depression Screening 1988 HIV Screening 1988 SDOH Screening 1988 Alcohol/Substance Use Screening 2000 Tobacco Screening 2000 Family Planning (PISQ) 2003 Hepatitis C Screening 2006 DTaP/Tdap/Td Vaccines (1 - Tdap) 2007 Hepatitis B Vaccines (1 of 3 - 19+ 3-dose series) 2007 COVID-19 Vaccine (1 - 2023-2 5 season) 2024 Influenza Vaccine (#1) 2024 Lipid Panel 10/21/2026 10/21/2021 Zoster Vaccines (1 of 2) 2038 RSV Patients and Pa tients Aged 60 years or older (1 - 1-dose 75+ series) 2063 HIB Vaccines Aged Out No longer eligi ble based on patient's age to complete this topic HPV Vaccines Aged Out No longer eligi ble based on patient's age to complete this topic Hepatitis A Vaccines Aged Out No long er eligible based on patient's age to complete this topic IPV Vaccines Aged Out No longer eligi ble based on patient's age to complete this topic Meningococcal Vaccine Aged Out No [place] dot eligible based on patient's age to complete this topic Pneumococcal Vaccine: Pediat rics (0 to 5 Years) and At-Risk Patients (6 to 49) Years) Aged Out No longer elig ible based on patient's age to complete this topic RSV under 20 months Aged Out No longe r eligible based on patient's age to complete this topic Rotavirus Vaccines Aged Out No longer eligible based on patient's age to complete this topic Procedures Procedure Name Priority Date/Time Associated Diagnosis Comments LIPID PANEL, STANDARD Routine 10/21/2021 11:37 AM EDT from Last 3 Months or Most Recently Relevant to Health Maintenance Results * LIPID PANEL, STANDARD (10/21/2021 11:37 AM EDT) Chol/HDLC Ratio 2.5 <5.0 (calc) [facility] Cholesterol, Total 114 <200 mg/dL [facility] HDL Cholesterol 45 > OR = 40 mg/dL [facility] LDL Cholesterol 54 mg/dL (calc) [facility] Comment: Reference range: <100 ?? Desirable range <100 mg/dL for primary prevention; ?? <70 mg/dL for patients with CHD or diabetic patients ?? with > or = 2 CHD risk factors. ?? LDL-C is now calculated using the Altaf ?? calculation, which is a validated novel method providing ?? better accuracy than the Friedewald equation in the ?? estimation of LDL-C. ?? Corona LOPEZ et al. LISANDRO. 2013;310(19): 1228-5290 ?? (http://MediaLifTV.Stunable/faq/CRR014) Non-HDL Cholesterol 69 <130 mg/dL (calc) [facility] Comment: For patients with diabetes plus 1 major ASCVD risk ?? factor, treating to a non-HDL-C goal of <100 mg/dL ?? (LDL-C of <70 mg/dL) is considered a therapeutic ?? option. Triglycerides 72 <150 mg/dL [facility] 10/21/2021 11:3 7 AM EDT us John Mcintosh MD LAB BLOOD ORDERABLES Final Result [facility] [address] from Last 3 Months or Most Recently Relevant to Health Maintenance [place] [address] [place] [address] C3 Care Teams Dental Front Office Assistant Relationship Specialty Start Date End Date John Mcintosh MD [address] [place] [id number] PCP - General Internal Medicine 04/12/19
--- OUTSIDE RECORDS SUMMARY | 2024-11-17 12:30 | XMS_ITS | Encounter Summary ---
Author Organization [employer] Address [address] [place] [address] 7t [place] [address] Care Team Providers Care Salary Manager Name Role Phone John Mcintosh MD Primary Care Provider Encounter Details Date Type Department Care Team ([facility] st Contact Info) Description 10/15/2022 Orders Only [facility] MED & PEDS [address] [place], [place] [phone] John Mcintosh MD 505 [place] [address] Hypogonadism in male (Primary Dx) Social History Tobacco Use Types Packs/Day Years Used Date Smoking Tobacco: Never Assessed Sex and Gender Information Value Date Recorded Sex Assigned at Male 05/12/2022 10:24 AM EDT Legal Sex Male 10:24 AM EDT Gender Identity Male 05/12/2022 10:24 AM EDT Sexual Orientation Straight 05/12/2022 10 :24 AM EDT documented as of this encounter Plan of Treatment Scheduled Orders Name Type Priority Associated Diagnoses Orde r Schedule Testosterone, Total, males (Adult), IA Lab Routine Hypogonadism in male Expected: 10/15/2022 (Approximate), Expires: 10/16/2023 Urinalysis Complete Lab Routine Hypogonadism in male Expected: 10/15/2022 (Approximate), Expires: 10/16/2023 Glucose, Whole Blood Lab Routine Hypogonadism in male Expected: 10/15/2022 (Approximate), Expires: 10/16/2023 documented as of this encounter Procedures Procedure Name Priority Date/Time Associated Diagnosis Comments SEX HORMONE BINDING GLOBULIN Routine 10/15/2022 9:01 AM EDT Hypogonadism in male PROLACTIN Routine 10/15/2022 9:01 AM EDT Hypogonadism in male ESTRADIOL Routine 10/15/2022 9:01 AM EDT Hypogonadism in male TESTOSTERONE, FREE (DIALYSIS) AND TOTAL,MS Routine 10/15/2022 9:01 AM EDT Hypogonadism in male PSA, TOTAL Routine 10/15/2022 9:01 AM EDT Hypogonadism in male LH Routine 10/15/2022 9:01 AM EDT Hypogonadism in male FSH Routine 10/15/2022 9:01 AM EDT Hypogonadism in male documented in this encounter Results * PSA,Total (10/15/2022 9:01 AM EDT) PSA, Total 0.30 < OR = 4.00 ng/mL [employer] [facility] Comment: The total PSA value from this assay system is standardized against the WHO standard. The test result will be approximately 20% lower when compared to the equimolar-standardized total PSA ([facility] [place]). Comparison of serial PSA results should be interpreted with this fact in mind. This test was performed using the Siemens chemiluminescent method. Values obtained from different assay methods cannot be used interchangeably. PSA levels, regardless of value, should not be interpreted as absolute evidence of the presence or absence of disease. Blood Venous blood specimen / Unknown 10/15/2022 9:01 AM EDT 10/15/2022 9:02 AM EDT [facility] - 10/20/2022 3:48 PM EDT PATIENT REFUSED SOME TESTING; PATIENT ENCOURAGED TO RETURN. us John Mcintosh MD LAB BLOOD ORDERABLES Final Result [facility] [address], [place] [address] [employer] [facility] 200 [place] [address] * (ABNORMAL) LH (10/15/2022 9:01 AM EDT) LH 1.1(L) 1.5 - 9.3 mIU/mL [employer] [place] [facility] Blood Venous blood specimen / Unknown 10/15/2022 9:01 AM EDT 10/15/2022 9:02 AM EDT Narrative [facility] - 10/20/2022 3:48 PM EDT PATIENT REFUSED SOME TESTING; PATIENT ENCOURAGED TO RETURN. John Mcintosh MD LAB BLOOD ORDERABLES Final Result Performing Organization Address City/[facility]/ZIP Co de Phone Number [address] [phone] [employer] [facility] [address] [place] [phone] * Sex Hormone Binding Globulin (SHBG) (10/15/2022 9:01 AM EDT) Sex Hormone Binding Globulin 12 10 - 50 nmol/L [employer] [facility] Blood Venous blood specimen / Unknown 10/15/2022 9:01 AM EDT 10/15/2022 9:02 AM EDT Narrative [facility] - 10/20/2022 3:48 PM EDT PATIENT REFUSED SOME TESTING; PATIENT ENCOURAGED TO RETURN. us John Mcintosh MD LAB BLOOD ORDERABLES Final Result Performing Organization Address City/[facility]/ZIP Co de Phone Number [address] [phone] [employer] [place] [facility] [address] [place] [phone] * Prolactin (10/15/2022 9:01 AM EDT) Prolactin 7.7 2.0 - 18.0 ng/mL [employer] [place] [facility] Blood Venous blood specimen / Unknown 10/15/2022 9:01 AM EDT 10/15/2022 9:02 AM EDT Narrative [facility] - 10/20/2022 3:48 PM EDT PATIENT REFUSED SOME TESTING; PATIENT ENCOURAGED TO RETURN. John Mcintosh MD LAB BLOOD ORDERABLES Final Result Performing Organization Address [facility] Co de Phone Number [address], [facility] [place] [address] [employer] [facility] [address] [place] [address] * FSH (10/15/2022 9:01 AM EDT) Pathologist [facility] FSH 3.5 1.6 - 8.0 mIU/mL [employer] [place] [facility] Blood Venous blood specimen / Unknown 10/15/2022 9:01 AM EDT 10/15/2022 9:02 AM EDT [facility] - 10/20/2022 3:48 PM EDT PATIENT REFUSED SOME TESTING; PATIENT ENCOURAGED TO RETURN. John Mcintosh MD LAB BLOOD ORDERABLES Final Result Performing Organization Address [facility] de Phone Number [address], [place] [address] [employer] [place] [facility] [address] [place] [phone] * Estradiol (10/15/2022 9:01 AM EDT) [facility] Estradiol <15 < OR = 39 pg/mL [employer] [place] [facility] Comment: Reference range established on post-pubertal patient population. No pre-pubertal reference range established using this assay. For any patients for whom low Estradiol levels are anticipated (e.g. males, pre-pubertal children and hypogonadal/post-menopausal females), the [employer] [facility] Estradiol, Ultrasensitive, LCMSMS assay is recommended (order code [id number]). ?? Please note: patients being treated with the drug fulvestrant (Faslodex(R)) have demonstrated significant interference in immunoassay methods for estradiol measurement. The cross reactivity could lead to falsely elevated estradiol test results leading to an inappropriate clinical assessment of estrogen status. [employer] order code [id number], Ultrasensitive LC/MS/MS demonstrates negligible cross reactivity with fulvestrant. Blood Venous blood specimen / Unknown 10/15/2022 9:01 AM EDT 10/15/2022 9:02 AM EDT Narrative [facility] - 10/20/2022 3:48 PM EDT PATIENT REFUSED SOME TESTING; PATIENT ENCOURAGED TO RETURN. us John Mcintosh MD LAB BLOOD ORDERABLES Final Result [facility] [address], [place] [address] [employer] [facility] [address] [place] [address] * (ABNORMAL) Testosterone, Free (Dialysis) And Total, MS (10/15/2022 9:01 AM EDT) Pathologist [facility] Testosterone, Total, MS 48(L) 250 - 1,100 ng/dL [employer]/ [facility] Comment: For additional information, please refer to http://education.Better Finance/faq/ FgaaaIzcakdydxgoePRPWBUZCD604 (This link is being provided for informational/ educational purposes only.) This test was developed and its analytical performance characteristics have been determined by [employer]. It has not been cleared or approved by the U.S. Food and Drug Administration. This assay has been validated pursuant to the CLIA regulations and is used for clinical purposes. Testosterone, Free 9.7(L) 35.0 - 155.0 pg/mL [employer]/[facility] Comment: This test was developed and its analytical performance characteristics have been determined by [employer] [place], [place]. It has not been cleared or approved by the U.S. Food and Drug Administration. This assay has been validated pursuant to the CLIA regulations and is used for clinical purposes. Blood Venous blood specimen / Unknown 10/15/2022 9:01 AM EDT 10/15/2022 9:02 AM EDT Narrative [facility] - 10/20/2022 3:48 PM EDT PATIENT REFUSED SOME TESTING; PATIENT ENCOURAGED TO RETURN. us John Mcintosh MD LAB BLOOD ORDERABLES Final Result [facility] 200 [facility], [place] [address] [facility] [address] [place] documented in this encounter Visit Diagnoses Diagnosis Hypogonadism in male- Primary documented in this encounter Care Teams Salary Manager Relationship Specialty Start Date End Date John Mcintosh MD [address] [place] [phone] PCP - General Internal Medicine 04/12/19 documented as of this encounter
[2024-11-17 14:14] LABS: Hematocrit 47.1 % (42.0-52.0); Hemoglobin 17.5 g/dl (14.0-18.0); Mean Corpuscular HGB Conc 37.2 g/dl (31.0-36.0); Mean Corpuscular Hemoglobin 31.1 pg (27.0-33.0); Mean Corpuscular Volume 83.8 fL (80.0-98.0); Mean Platelet Volume 11.1 fL (9.4-12.4); Platelet Count 195 X10*3/uL (160-400); Red Blood Count 5.62 X10*6/uL (4.60-5.80); White Blood Count 8.2 X10*3/uL (4.8-10.8)
[2024-11-17 14:43] LABS: Prostate Specific Antigen 0.42 ng/mL (<0.05-4.0)
[2024-11-21 16:48] LABS: Testosterone, Total 1108 ng/dL (250-1100)
== END 2024-11-17 10:58 | disposition home or self-care (01) ==
LOC: HO.CHCLDS 10:57
PROVIDERS: Visit Provider Urology
DX: E29.1 Testicular hypofunction (principal)
CPT/HCPCS: 36415; 84153; 84403; 85027

== ENCOUNTER 2024-11-24 15:11 | Outpatient (AMB) | payer MEDICAID, SELFPAY ==
--- NOTE | 2024-11-24 15:17 | MHC.OFFVIS ---
Intake Visit Reasons: 6m/labs Intake Note: Pt presents to the office today for a 6 month follow up/labs. Allergies No Known Allergies (No Known Allergies*) Allergy (Verified 12/27/24 11:05) HPI Comments Details: Jd is male. He is a patient of . 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 Previously taken testosterone exogenous - including nandralone Prior supplement use Also with weekly marijuana use Prior complains of nipple discharge Laboratories - 05/31 T 397 F 77 - 11/02 T 150, FT 27 - 02/01 T 340 FT 90 FSH <0.1 LH <0.2 SHBG - 09/05 (thu) T 236, FT 53, 04/05 717 0.65, 12/04 T 1000 PFSH Medical History Arthritis Carpal tunnel syndrome on both sides Nephrolithiasis Surgical History History of arthroscopy Review of Systems Const Denies chills and Denies fever(s) Card Reports no additional complaints and Denies syncope Resp Denies cough GI Denies abdominal pain and Denies heartburn Reports as per HPI and Denies change in libido Neuro Denies syncope Psych Denies change in libido Endo Denies change in libido Physical Exam Const General: cooperative, healthy appearing, comfortable and no acute distress Orientation/consciousness: patient oriented x3 HEENT Face and sinus: Yes normal facial exam Mouth: moist mucous membranes Neck Neck: Yes normal visual inspection, Yes full ROM and Yes trachea midline Chest Chest palpation & inspection: normal inspection of the chest Resp Effort & Inspection: normal respiratory effort, able to speak in complete sentences and no respiratory distress GI Inspection: Yes normal to inspection Back/Spine/Pelvis Cervical Spine: normal cervical lordosis Thoracic/Lumbar Spine: thoracic and lumbar spine normal to inspection Skin General skin exam: no rashes or lesions noted Neuro General: patient oriented x3, gait normal, tone normal and moves all extremities Extrem General: Yes normal to inspection and Yes capillary refill normal Assessment & Plan Assessment & Plan (1) Drug-induced gynecomastia: Code(s): N62 - Hypertrophy of breast; T50.904C - Adverse effect of unspecified drugs, medicaments and biological substances, initial encounter Category: Medical (2) Hypogonadism in male: Code(s): E29.1 - Testicular hypofunction Category: Medical Plan Radiation oncology referral for gynecomastia Orders: Orders Prolactin 11/29/24 E29.1 - Testicular hypofunction Testosterone, Free/Total 11/29/24 E29.1 - Testicular hypofunction Estradiol Ultra Sensitive 11/29/24 E29.1 - Testicular hypofunction Follicle Stimulating Hormone 11/29/24 E29.1 - Testicular hypofunction Lutenizing Hormone 11/29/24 E29.1 - Testicular hypofunction Sex Hormone Binding Globulin 11/29/24 E29.1 - Testicular hypofunction Patient Instructions: This note is constructed using voice recognition software. While every effort has been made to ensure accuracy teacher of the sight impaired errors may have been included. Imaging studies, laboratory and physical exam results were discussed and reviewed in detail. No major barriers to patient understanding were identified. An opportunity to ask questions regarding the treatment plan was provided. All questions were answered. The patient expressed understanding and agreement with the above treatment plan. The patient is aware they should contact our office by phone for worsening of their current condition or the appearance of new urologic symptoms. Compliance is encouraged with any medications and followup testing that is ordered. It is a privilege to participate in the urologic care of your patient. If you have any questions or concerns regarding treatment for the above conditions, or other urologic issues, please do not hesitate to contact me. The office telephone contact is [phone]. Sincerely, Dr uSleman Colin MD, [facility] - Urology Compassionate Specialist Care for the Genitourinary System Coding Level of Care Code Est Pt Level 4 (47073) Diagnoses Drug-induced gynecomastia N62; T50.906D Hypogonadism in male E29.1
--- OUTSIDE RECORDS SUMMARY | 2024-11-24 15:47 | XMS_ITS | Clinical Summary ---
Author Organization [employer] [facility] Address [address] [facility] 7t [place] [address] Care Team Providers Care Motorboat Mechanic Inboard/Outboard Name Role Phone John Mcintosh MD Primary Care Provider Allergies No known active allergies Active Problems Problem Noted Date Diagnosed Date Vitamin D deficiency 10/25/2021 Hypogonadism in male 10/25/2021 Encounters Date Type Department Care Team Description 09/23/2024 Population Health Risk Score [facility] (C3) Department [address] [address] Provider, Population Health Generic from [...] patient's age to complete this topic Meningococcal B Vaccine Aged Out No l onger eligible based on patient's age to complete [...] ?? Corona LOPEZ et al. LISANDRO. 2013;310(19): 6344-5844 ?? (http://S² Development.Measureful/faq/FAQ099) Non-HDL Cholesterol 69 <130 mg/dL (calc) [facility] Comment: For patients with diabetes plus 1 major ASCVD risk ?? factor, treating to a non-HDL-C goal of <100 mg/dL ?? (LDL-C of <70 mg/dL) is considered a therapeutic ?? option. Triglycerides 72 <150 mg/dL [facility] 10/21/2021 11:3 7 AM EDT us John Mcintosh MD LAB BLOOD ORDERABLES Final Result [facility] [address] from Last 3 Months or Most Recently Relevant to Health Maintenance Insurance [facility] C3 Care Teams Motorboat Mechanic Inboard/Outboard Relationship Specialty Start Date End Date John Mcintosh MD [address] [place] [phone] PCP - General Internal Medicine 04/12/19
--- OUTSIDE RECORDS SUMMARY | 2024-11-24 15:47 | XMS_ITS | Encounter Summary ---
Author Organization [employer] Address [address] [place] [address] 7t [place] [address] Care Team Providers Care Gauge Maker Apprentice Name Role Phone John Mcintosh MD Primary Care Provider Encounter Details Date Type Department Care Team ([facility] st Contact Info) Description 10/15/2022 Orders Only [facility] CH[facility] MED & PEDS 505 [place], [place] [phone] John Mcintosh MD 505 [place] [address] Hypogonadism in male (Primary Dx) Social History [...] Total 0.30 < OR = 4.00 ng/mL [facility] [employer] Comment: The total PSA value from this assay system is standardized against the WHO standard. The test result will be approximately 20% lower when compared to the equimolar-standardized total PSA ([place]). Comparison of serial PSA results should be [...] 9:01 AM EDT 10/15/2022 9:02 AM EDT [facility] - 10/20/2022 3:48 PM EDT PATIENT REFUSED SOME TESTING; PATIENT ENCOURAGED TO RETURN. us John Mcintosh MD LAB BLOOD ORDERABLES Final Result [facility] [address], [place] [address] [facility] [employer] 200 [place] [address] * (ABNORMAL) LH (10/15/2022 9:01 AM EDT) LH 1.1(L) 1.5 - 9.3 mIU/mL [facility] [place] [facility] Blood Venous blood specimen / Unknown 10/15/2022 9:01 AM EDT 10/15/2022 9:02 AM EDT Narrative [facility] - 10/20/2022 3:48 PM EDT PATIENT REFUSED SOME TESTING; PATIENT ENCOURAGED TO RETURN. John Mcintosh MD LAB BLOOD ORDERABLES Final Result Performing Organization Address City/[facility]/ZIP Co de Phone Number [address] [address] [facility] [place] [employer] [address] [place] [phone] * Sex Hormone Binding Globulin (SHBG) (10/15/2022 9:01 AM EDT) Sex Hormone Binding Globulin 12 10 - 50 nmol/L [facility] [employer] Blood Venous blood specimen / Unknown 10/15/2022 9:01 AM EDT 10/15/2022 9:02 AM EDT Narrative [facility] - 10/20/2022 3:48 PM EDT PATIENT REFUSED SOME TESTING; PATIENT ENCOURAGED TO RETURN. us John Mcintosh MD LAB BLOOD ORDERABLES Final Result Performing Organization Address City/[facility]/ZIP Co de Phone Number [address] [phone] [facility] [place] [facility] [address] [place] [phone] * Prolactin (10/15/2022 9:01 AM EDT) Prolactin 7.7 2.0 - 18.0 ng/mL [facility] [place] [facility] Blood Venous blood specimen / Unknown 10/15/2022 9:01 AM EDT 10/15/2022 9:02 AM EDT Narrative [facility] - 10/20/2022 3:48 PM EDT PATIENT REFUSED SOME TESTING; PATIENT ENCOURAGED TO RETURN. John Mcintosh MD LAB BLOOD ORDERABLES Final Result Performing Organization Address [facility] Co de Phone Number [address], [facility] [place] [address] [facility] [address] [place] [address] * FSH (10/15/2022 9:01 AM EDT) Pathologist [facility] FSH 3.5 1.6 - 8.0 mIU/mL [facility] [place] [facility] Blood Venous blood specimen / Unknown 10/15/2022 9:01 AM EDT 10/15/2022 9:02 AM EDT [facility] - 10/20/2022 3:48 PM EDT PATIENT REFUSED SOME TESTING; PATIENT ENCOURAGED TO RETURN. John Mcintosh MD LAB BLOOD ORDERABLES Final Result Performing Organization Address [facility] de Phone Number [address], [place] [address] [facility] [address] [place] [phone] * Estradiol (10/15/2022 9:01 AM EDT) [facility] Estradiol <15 < OR = 39 pg/mL [facility] [place] [facility] Comment: Reference range established on post-pubertal patient population. No pre-pubertal reference range established using this assay. For any patients for whom low Estradiol levels are anticipated (e.g. males, pre-pubertal children and hypogonadal/post-menopausal females), the [facility] Estradiol, Ultrasensitive, LCMSMS assay is recommended (order code 36065). ?? Please note: patients being treated with the drug fulvestrant (Faslodex(R)) have demonstrated significant interference in immunoassay methods for estradiol measurement. The cross reactivity could lead to falsely elevated estradiol test results leading to an inappropriate clinical assessment of estrogen status. [facility] order code [id number], Ultrasensitive LC/MS/MS demonstrates negligible cross reactivity with fulvestrant. Blood Venous blood specimen / Unknown 10/15/2022 9:01 AM EDT 10/15/2022 9:02 AM EDT Narrative [facility] - 10/20/2022 3:48 PM EDT PATIENT REFUSED SOME TESTING; PATIENT ENCOURAGED TO RETURN. us John Mcintosh MD LAB BLOOD ORDERABLES Final Result [facility] [address], [place] [address] [facility] [address] [place] [address] * (ABNORMAL) Testosterone, Free (Dialysis) And Total, MS (10/15/2022 9:01 AM EDT) Pathologist [facility] Testosterone, Total, MS 48(L) 250 - 1,100 ng/dL [facility]/ [facility] [employer] Comment: For additional information, please refer to http://education.Ufree/faq/ BkrurGmqjaucvngwfTUMIDEGGG829 (This link is being provided for informational/ educational purposes only.) This test was developed and its analytical performance characteristics have been determined by [employer]. It has not been cleared or approved by the U.S. Food and Drug Administration. This assay has been validated pursuant to the CLIA regulations and is used for clinical purposes. Testosterone, Free 9.7(L) 35.0 - 155.0 pg/mL [facility] Comment: This test was developed and its analytical performance characteristics have been determined by [employer] [place], [place]. It has not been cleared or [...] LAB BLOOD ORDERABLES Final Result [facility] 200 [facility], [facility], [place] [address] [facility] [address] [address] [address] [place] documented in this encounter Visit Diagnoses Diagnosis Hypogonadism in male- Primary documented in this encounter Care Teams Gauge Maker Apprentice Relationship Specialty Start Date End Date John Mcintosh MD [address] [place] [phone] PCP - General Internal Medicine 04/12/19 documented as of this encounter
== END 2024-11-24 16:14 | disposition home or self-care (01) ==
LOC: HO.HUSH 15:11
PROVIDERS: PCP Internal Medicine; Visit Provider Urology
DX: E29.1 Testicular hypofunction (principal); T50.905A Adverse effect of unspecified drugs, medicaments and biological substances, initial encounter
CPT/HCPCS: 99214

== ENCOUNTER → 2024-11-24 15:11 | Outpatient (BNVA) | payer MEDICAID, SELFPAY | PROVIDERS: PCP Internal Medicine; Visit Provider Urology | DX: E29.1 Testicular hypofunction (principal); N62 Hypertrophy of breast; T50.905A Adverse effect of unspecified drugs, medicaments and biological substances, initial encounter; X58.XXXA Exposure to other specified factors, initial encounter | CPT/HCPCS: 99212 ==

== ENCOUNTER 2024-11-29 10:21 | Outpatient (REF) | payer MEDICAID, SELFPAY ==
--- OUTSIDE RECORDS SUMMARY | 2024-11-29 11:34 | XMS_ITS | Clinical Summary ---
Author Organization [employer] [facility] Address [address] [facility] 7t [place] [address] Care Team Providers Care Independent Film Maker Name Role Phone John Mcintosh MD Primary Care Provider Allergies No known active allergies Active Problems Problem Noted Date Diagnosed Date Vitamin D deficiency 10/25/2021 Hypogonadism in male 10/25/2021 Encounters Date Type Department Care Team Description 09/23/2024 Population Health Risk Score [facility] (C3) Department [address] [phone] Provider, Population Health Generic from [...] 1988 HIV Screening 1988 SDOH Screening 1988 Disability Screening 1988 Alcohol/Substance Use Screening 2000 Tobacco [...] LAB SYSTEM LDL Cholesterol 54 mg/dL (calc) [facility] Comment: Reference range: <100 ?? [...] ?? Corona LOPEZ et al. LISANDRO. 2013;310(19): 2207-6248 ?? (http://Magento.Ofercity/faq/SPR282) Non-HDL Cholesterol 69 <130 mg/dL (calc) [facility] Comment: For patients with diabetes plus 1 major ASCVD risk ?? factor, treating to a non-HDL-C goal of <100 mg/dL ?? (LDL-C of <70 mg/dL) is considered a therapeutic ?? option. Triglycerides 72 <150 mg/dL [facility] 10/21/2021 11:3 7 AM EDT us John Mcintosh MD LAB BLOOD ORDERABLES Final Result [facility] [address] from Last 3 Months or Most Recently Relevant to Health Maintenance Insurance [employer] [facility] C3 * Guarantor: Jd Shah Account Type Relation to Patient Date of Phone Billing Address Personal/Family Self [place], [place] Care Teams Independent Film Maker Relationship Specialty Start Date End Date John Mcintosh MD [address] [place] [phone] PCP - General Internal Medicine 04/12/19
--- OUTSIDE RECORDS SUMMARY | 2024-11-29 11:34 | XMS_ITS | Encounter Summary ---
Author Organization [employer] Address [address] [place] [address] 7t [place] [address] Care Team Providers Care Charity Fundraiser Name Role Phone John Mcintosh MD Primary Care Provider Encounter Details Date Type Department Care Team ([facility] st Contact Info) Description 10/15/2022 Orders Only [facility] MED & PEDS [address] [place], [place] [id number] John Mcintosh MD [address] [place] [address] Hypogonadism in male (Primary Dx) Social History [...] Total 0.30 < OR = 4.00 ng/mL [facility] [place] [facility] Comment: The total PSA value from this assay system is standardized against the WHO standard. The test result will be approximately 20% lower when compared to the equimolar-standardized total PSA ([facility] [place]). Comparison of serial PSA results should be [...] 9:01 AM EDT 10/15/2022 9:02 AM EDT [facility] - 10/20/2022 3:48 PM EDT PATIENT REFUSED SOME TESTING; PATIENT ENCOURAGED TO RETURN. us John Mcintosh MD LAB BLOOD ORDERABLES Final Result [facility] [address], [place] [address] [facility] [place] [facility] [address] [place] [address] * (ABNORMAL) LH (10/15/2022 9:01 AM EDT) LH 1.1(L) 1.5 - 9.3 mIU/mL [facility] [place] [facility] Blood Venous blood specimen / Unknown 10/15/2022 9:01 AM EDT 10/15/2022 9:02 AM EDT Narrative [facility] - 10/20/2022 3:48 PM EDT PATIENT REFUSED SOME TESTING; PATIENT ENCOURAGED TO RETURN. John Mcintosh MD LAB BLOOD ORDERABLES Final Result Performing Organization Address City/[facility]/ZIP Co de Phone Number [address] [phone] [facility] [place] [facility] [address] [place] [phone] * Sex Hormone Binding Globulin (SHBG) (10/15/2022 9:01 AM EDT) Sex Hormone Binding Globulin 12 10 - 50 nmol/L [facility] [place] [facility] Blood Venous blood specimen / Unknown 10/15/2022 9:01 AM EDT 10/15/2022 9:02 AM EDT Narrative [facility] - 10/20/2022 3:48 PM EDT PATIENT REFUSED SOME TESTING; PATIENT ENCOURAGED TO RETURN. us John Mcintosh MD LAB BLOOD ORDERABLES Final Result Performing Organization Address City/[facility]/ZIP Co de Phone Number [address] [address] [facility] [place] [facility] [address] [place] [phone] * Prolactin (10/15/2022 9:01 AM EDT) Prolactin 7.7 2.0 - 18.0 ng/mL [facility] [place] [facility] Blood Venous blood specimen / Unknown 10/15/2022 9:01 AM EDT 10/15/2022 9:02 AM EDT Narrative [facility] - 10/20/2022 3:48 PM EDT PATIENT REFUSED SOME TESTING; PATIENT ENCOURAGED TO RETURN. John Mcintosh MD LAB BLOOD ORDERABLES Final Result Performing Organization Address [facility] Co de Phone Number [address] [place] [address], [place] [address] [facility] [address] [place] [address] * FSH (10/15/2022 9:01 AM EDT) Pathologist [facility] FSH 3.5 1.6 - 8.0 mIU/mL [facility] [place] [facility] Blood Venous blood specimen / Unknown 10/15/2022 9:01 AM EDT 10/15/2022 9:02 AM EDT [facility] - 10/20/2022 3:48 PM EDT PATIENT REFUSED SOME TESTING; PATIENT ENCOURAGED TO RETURN. John Mcintosh MD LAB BLOOD ORDERABLES Final Result Performing Organization Address [facility] de Phone Number [address] [place] [address], [place] [address] [facility] [place] [facility] [address] [place] [phone] * Estradiol (10/15/2022 9:01 AM EDT) [facility] Estradiol <15 < OR = 39 pg/mL [facility] [place] [facility] Comment: Reference range established on post-pubertal patient population. No pre-pubertal reference range established using this assay. For any patients for whom low Estradiol levels are anticipated (e.g. males, pre-pubertal children and hypogonadal/post-menopausal females), the [facility] Estradiol, Ultrasensitive, LCMSMS assay is recommended (order code [id number]). ?? Please note: patients being treated with the drug fulvestrant (Faslodex(R)) have demonstrated significant interference in immunoassay methods for estradiol measurement. The cross reactivity could lead to falsely elevated estradiol test results leading to an inappropriate clinical assessment of estrogen status. [facility] order code [id number], Ultrasensitive LC/MS/MS demonstrates negligible cross reactivity with fulvestrant. Blood Venous blood specimen / Unknown 10/15/2022 9:01 AM EDT 10/15/2022 9:02 AM EDT Narrative [facility] - 10/20/2022 3:48 PM EDT PATIENT REFUSED SOME TESTING; PATIENT ENCOURAGED TO RETURN. us John Mcintosh MD LAB BLOOD ORDERABLES Final Result [facility] [address], [place] [address] [facility] [address] [place] [address] * (ABNORMAL) Testosterone, Free (Dialysis) And Total, MS (10/15/2022 9:01 AM EDT) Pathologist [facility] Testosterone, Total, MS 48(L) 250 - 1,100 ng/dL [facility]/ [facility] Comment: For additional information, please refer to http://education.[employer]/faq/ AiszdHpjyvnouycwaQPLGRMIJH714 (This link is being provided for informational/ educational purposes only.) This test was developed and its analytical performance characteristics have been determined by [place]. It has not been cleared or approved by the U.S. Food and Drug Administration. This assay has been validated pursuant to the CLIA regulations and is used for clinical purposes. Testosterone, Free 9.7(L) 35.0 - 155.0 pg/mL [facility] Comment: This test was developed and its analytical performance characteristics have been determined by [facility], [place]. It has not been cleared or [...] LAB BLOOD ORDERABLES Final Result [facility] [address] [facility], [place] [address] [facility] [address] [facility] [address] [place] documented in this encounter Visit Diagnoses Diagnosis Hypogonadism in male- Primary documented in this encounter Care Teams Charity Fundraiser Relationship Specialty Start Date End Date John Mcintosh MD [address] [place] [address] PCP - General Internal Medicine 04/12/19 documented as of this encounter
[2024-11-30 03:53] LABS: Follicle Stimulating Hormone <0.7 mIU/mL (1.4-12.8); Lutenizing Hormone 0.3 mIU/mL (1.5-9.3); Prolactin 9.9 ng/mL (2.0-18.0); Sex Hormone Binding Globulin 16 nmol/L (10-50)
[2024-12-03 17:54] LABS: Testosterone, Free 94.2 pg/mL (35.0-155.0); Testosterone, Total 476 ng/dL (250-1100)
[2024-12-14 08:13] LABS: Estradiol Ultra Sensitive 42 pg/mL (< OR = 29)
== END 2024-11-29 10:22 | disposition home or self-care (01) ==
LOC: HO.CHCLDS 10:21
PROVIDERS: Visit Provider Urology
DX: E29.1 Testicular hypofunction (principal)
CPT/HCPCS: 36415; 82670; 83001; 83002; 84146; 84270; 84402; 84403

== ENCOUNTER 2024-12-27 10:50 | Outpatient (AMB) | payer MEDICAID, SELFPAY ==
--- NOTE | 2024-12-27 11:05 | MHC.OFFVIS ---
Intake Visit Reasons: 4w testo Intake Note: Patient is present for 4W TESTO Urology Medication:TESTOSTERONE Antibiotic Allergy:NONE Blood Thinner:NONE Herd Tester Required: No Allergies No Known Allergies [No Known Allergies*] Allergy (Verified 12/27/24 11:05) HPI Comments Details: Jd is male. He is a patient of . He is seen for the following urologic conditions - hypogonadism - gynecomastia Combination testosterone Current dosage 0.5 cc weekly T shot Sat Lab work Thu Lab work normalized. 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 Previously taken testosterone exogenous - including nandralone Prior supplement use Also with weekly marijuana use Prior complains of nipple discharge Laboratories - 05/31 T 397 F 77 - 11/02 T 150, FT 27 - 02/01 T 340 FT 90 FSH <0.1 LH <0.2 SHBG 09/05 (thu) T 236, FT 53, 04/05 717 0.65, 12/04 T 1000, 12/04 T 500 P 0.4 LH 0.3 PFSH Medical History Arthritis Carpal tunnel syndrome on both sides Nephrolithiasis Surgical History History of arthroscopy Review of Systems Const Denies chills and Denies fever(s) Card Reports no additional complaints and Denies syncope Resp Denies cough GI Denies abdominal pain and Denies heartburn Reports as per HPI and Denies change in libido Neuro Denies syncope Psych Denies change in libido Endo Denies change in libido Physical Exam Const General: cooperative, healthy appearing, comfortable and no acute distress Orientation/consciousness: patient oriented x3 HEENT Face and sinus: Yes normal facial exam Mouth: moist mucous membranes Neck Neck: Yes normal visual inspection, Yes full ROM and Yes trachea midline Chest Chest palpation & inspection: normal inspection of the chest Resp Effort & Inspection: normal respiratory effort, able to speak in complete sentences and no respiratory distress GI Inspection: Yes normal to inspection Back/Spine/Pelvis Cervical Spine: normal cervical lordosis Thoracic/Lumbar Spine: thoracic and lumbar spine normal to inspection Skin General skin exam: no rashes or lesions noted Neuro General: patient oriented x3, gait normal, tone normal and moves all extremities Extrem General: Yes normal to inspection and Yes capillary refill normal Assessment & Plan Assessment & Plan (1) Drug-induced gynecomastia: Code(s): N62 - Hypertrophy of breast; T50.905A - Adverse effect of unspecified drugs, medicaments and biological substances, initial encounter Category: Medical Plan Radiation oncology referral for mild gynecomastia Low-dose anastrozole Orders: Orders Testosterone, Total 4 Weeks C61 - Malignant neoplasm of prostate, N62 - Hypertrophy of breast, T50.905A - Adverse effect of unspecified drugs, medicaments and biological substances, initial encounter Estradiol Ultra Sensitive 4 Weeks E29.1 - Testicular hypofunction, N62 - Hypertrophy of breast, T50.905A - Adverse effect of unspecified drugs, medicaments and biological substances, initial encounter Referrals Radiation Oncology Referral N62 - Hypertrophy of breast, T50.905A - Adverse effect of unspecified drugs, medicaments and biological substances, initial encounter Medications: New anastrozole 1/4 tablet 2 times a week - Thursday and [id number] [facility] [id number] Member [id number] 0.25 mg (1/4 x 1 mg) PO 2XW 90 days 12 tabs 0RF E29.1 - Testicular hypofunction Patient Instructions: This note is constructed using voice recognition software. While every effort has been made to ensure accuracy mathematics improvement teacher errors may have been included. Imaging studies, laboratory and physical exam results were discussed and reviewed in detail. No major barriers to patient understanding were identified. An opportunity to ask questions regarding the treatment plan was provided. All questions were answered. The patient expressed understanding and agreement with the above treatment plan. The patient is aware they should contact our office by phone for worsening of their current condition or the appearance of new urologic symptoms. Compliance is encouraged with any medications and followup testing that is ordered. It is a privilege to participate in the urologic care of your patient. If you have any questions or concerns regarding treatment for the above conditions, or other urologic issues, please do not hesitate to contact me. The office telephone contact is [phone]. Sincerely, Dr Suleman Colin MDSAVANNAH [facility] - Urology Compassionate Specialist Care for the Genitourinary System Coding Level of Care Code Est Pt Level 4 (69297) Diagnoses Drug-induced gynecomastia N62; T50.905A
--- OUTSIDE RECORDS SUMMARY | 2024-12-27 12:19 | XMS_ITS | Clinical Summary ---
Author Organization [employer] Address [address] [place] [address] 7 [place] [address] Care Team Providers Care Plate Preparer Name Role Phone John Mcintosh MD Primary Care Provider [phone] Allergies No known active allergies Active Problems Problem Noted Date Diagnosed Date Vitamin D deficiency 10/25/2021 Hypogonadism in male 10/25/2021 Social History Tobacco Use Types Packs/Day Years [...] - 19+ 3-dose series) 2007 COVID-19 Vaccine ( - 2023-2 5 season) 2024 Influenza Vaccine (Season Ended) 2025 Lipid Panel 10/21/2026 10/21/2021 Zoster Vaccines (1 [...] Years) and At-Risk Patients (6 to 49) Years Aged Out No longer eligi ble based [...] ?? Corona LOPEZ et al. LISANDRO. 2013;310(19): 1724-1097 ?? (http://[employer].Endgame/faq/EYU835) Non-HDL Cholesterol 69 <130 mg/dL (calc) [facility] Comment: For patients with diabetes plus 1 major ASCVD risk ?? factor, treating to a non-HDL-C goal of <100 mg/dL ?? (LDL-C of <70 mg/dL) is considered a therapeutic ?? option. Triglycerides 72 <150 mg/dL [facility] 10/21/2021 11:3 7 AM EDT us John Mcintosh MD LAB BLOOD ORDERABLES Final Result [facility] [address] from Last 3 Months or Most Recently Relevant to Health Maintenance Insurance [facility] C[address] [place] [id number] [place] [address] Care Teams Plate Preparer Relationship Specialty Start Date End Date John Mcintosh MD [address] [place] [address] [place] [address] PCP - General Internal Medicine 04/12/19
== END 2024-12-27 11:36 | disposition home or self-care (01) ==
LOC: HO.HUSH 10:51
PROVIDERS: PCP Internal Medicine; Visit Provider Urology
DX: N62 Hypertrophy of breast (principal); T50.905A Adverse effect of unspecified drugs, medicaments and biological substances, initial encounter; Z13.9 Encounter for screening, unspecified
CPT/HCPCS: 99214

== ENCOUNTER → 2024-12-27 10:50 | Outpatient (BNVA) | payer MEDICAID, SELFPAY | PROVIDERS: PCP Internal Medicine; Visit Provider Urology | DX: N62 Hypertrophy of breast (principal); T50.905A Adverse effect of unspecified drugs, medicaments and biological substances, initial encounter | CPT/HCPCS: 81003; 99212 ==

== ENCOUNTER 2025-01-16 10:53 | Outpatient (REF) | payer MEDICAID, SELFPAY ==
--- OUTSIDE RECORDS SUMMARY | 2025-01-16 11:49 | XMS_ITS | Clinical Summary ---
Author Organization [employer] Address [address] [place] [address] 7 [place] [address] Care Team Providers Care Small Brake Form Operator Name Role Phone John Mcintosh MD Primary Care Provider [phone] Allergies No known active allergies Active Problems [...] 82 08/29/2022 10:08 AM EST Temperature 36.2 C (97.2 F) 08/29/2022 10:08 AM EST Respiratory Rate 16 08/29/2022 10:08 AM EST [...] 2023-2 5 season) 2024 Influenza Vaccine (#1) 2025 Lipid Panel 10/21/2026 10/21/2021 Zoster Vaccines [...] LAB SYSTEM LDL Cholesterol 54 mg/dL (calc) [facility] Comment: Reference range: <100 Desirable range <100 mg/dL for primary prevention; <70 mg/dL for patients with CHD or diabetic patients with > or = 2 CHD risk factors. LDL-C is now calculated using the Corona-Mills calculation, which is a validated novel method providing better accuracy than the Friedewald equation in the estimation of LDL-C. Corona LOPEZ et al. LISANDRO. 2013;310(19): 9542-2144 (http://education.[employer]/faq/PYT912) Non-HDL Cholesterol 69 <130 mg/dL (calc) [facility] Comment: For patients with diabetes plus 1 major ASCVD risk factor, treating to a non-HDL-C goal of <100 mg/dL (LDL-C of <70 mg/dL) is considered a therapeutic option. Triglycerides 72 <150 mg/dL [facility] 10/21/2021 11:3 7 AM EDT us John Mcintosh MD LAB BLOOD ORDERABLES Final Result [facility] [address] [place] [address], from Last 3 Months or Most Recently Relevant to Health Maintenance Insurance [place], [place] [employer] C3 Care Teams Small Brake Form Operator Relationship Specialty Start Date End Date John Mcintosh MD [address] [place] [address] PCP - General Internal Medicine 04/12/19
[2025-01-21 02:34] LABS: Estradiol Ultra Sensitive 14 pg/mL (< OR = 29)
== END 2025-01-16 10:54 | disposition home or self-care (01) ==
LOC: HO.CHCLDS 10:53
PROVIDERS: Visit Provider Urology
DX: C61 Malignant neoplasm of prostate (principal); T50.905A Adverse effect of unspecified drugs, medicaments and biological substances, initial encounter; E29.1 Testicular hypofunction
CPT/HCPCS: 36415; 82670; 84403

== ENCOUNTER 2025-02-21 13:43 | Outpatient (AMB) | payer MEDICAID, SELFPAY ==
--- NOTE | 2025-02-21 13:44 | A.OFFVIS_ITS ---
Intake Visit Reasons: 6wk follow up/ Labs Intake Note: Patient is present for 6WK follow up Urology Medication:TESTOSTERONE,ANASTROZOLE Antibiotic Allergy:NONE Blood Thinner:NONE Labs done : 01/16/2025 : Testosterone 589, Estradiol: 14 Employment Representative Required: No Accompanied by: Self / Same As Patient Allergies No Known Allergies (No Known Allergies*) Allergy (Verified 02/21/25 13:46) HPI Comments Details: Jd is male. He is a patient of . He is seen for the following urologic conditions - hypogonadism - gynecomastia Telemedicine Evaluation 15 min Consultation [employer] Video Combination testosterone Current dosage 0.5 cc weekly T shot Sat Lab work Thu Lab work normalized. Estrogen 42 down to 14 Continue 1/2 tab 2 times per week Assessment with Radiation Oncology for gynecomastia Data would suggest he would be better to have reduction surgery Referral to Dr. 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 Previously taken testosterone exogenous - including nandralone Prior supplement use Also with weekly marijuana use Prior complains of nipple discharge Laboratories - 05/31 T 397 F 77 - 11/02 T 150, FT 27 - 02/01 T 340 FT 90 FSH <0.1 LH <0.2 SHBG - 09/05 (thu) T 236, FT 53, 04/05 717 0.65, 12/04 T 1000, 12/04 T 500 P 0.4 LH 0.3, 02/03 590 E2 14 PFSH Medical History Arthritis Carpal tunnel syndrome on both sides Nephrolithiasis Surgical History History of arthroscopy Review of Systems Const All systems reviewed & are unremarkable except as noted in HPI and below Reports no additional complaints Resp Reports no additional complaints GI Reports no additional complaints Reports as per HPI Musc Reports no additional complaints Physical Exam Telemedicine evaluation Appropriate responses Regular breathing rate and rhythm HEENT Head: Yes normal to inspection Ears: hearing grossly normal bilaterally Eyes General: appearance normal, both eyes and all related structures Neck Neck: Yes normal visual inspection Chest Chest palpation & inspection: normal inspection of the chest Resp Effort & Inspection: normal respiratory effort and able to speak in complete sentences Telehealth Telehealth Telehealth Platform: [facility] Location of provider rendering services: practice address Location of patient: address on file Patient Identification confirmed using: Name, : Yes Telehealth method: video Patient verbally consented to treatment: Yes Patient verbally consented to billing insurance company: Yes Patient informed of any privacy concerns related to visit: Yes Minutes spent on Phone/Video with Pt.: 15 Assessment & Plan Assessment & Plan (1) Erectile disorder: Code(s): N52.9 - Male erectile dysfunction, unspecified Category: Medical (2) Drug-induced gynecomastia: Code(s): N62 - Hypertrophy of breast; T50.905A - Adverse effect of unspecified drugs, medicaments and biological substances, initial encounter Category: Medical (3) Hypogonadism in male: Code(s): E29.1 - Testicular hypofunction Category: Medical Plan Six-month follow-up lab work Referral General surgery Dr. Stewart for breast reduction Orders: Referrals General Surgery Referral N62 - Hypertrophy of breast, T50.905A - Adverse effect of unspecified drugs, medicaments and biological substances, initial encounter Medications: Changed From anastrozole 1/4 tablet 2 times a week - Thursday and [id number] [facility] [id number] Member [id number] 0.25 mg (1/4 x 1 mg) PO 2XW 90 days 12 tabs 0RF E29.1 - Testicular hypofunction To anastrozole 1/2 tablet 2 times a week - Thursday and [id number] [facility]33 Member [id number] 0.5 mg (1/2 x 1 mg) PO 2XW 13 tabs 1RF 90 days E29.1 - Testicular hypofunction Refilled testosterone cypionate (Depo-Testosterone) discard excess oil 100 mg (0.5 mL) IM QWEEK 4 mL 5RF 4 weeks E29.1 - Testicular hypofunction, [id number] Patient Instructions: This note is constructed using voice recognition software. While every effort has been made to ensure accuracy certified anesthesiologist assistant errors may have been included. Imaging studies, laboratory and physical exam results were discussed and reviewed in detail. No major barriers to patient understanding were identified. An opportunity to ask questions regarding the treatment plan was provided. All questions were answered. The patient expressed understanding and agreement with the above treatment plan. The patient is aware they should contact our office by phone for worsening of their current condition or the appearance of new urologic symptoms. Compliance is encouraged with any medications and followup testing that is ordered. It is a privilege to participate in the urologic care of your patient. If you have any questions or concerns regarding treatment for the above conditions, or other urologic issues, please do not hesitate to contact me. The office telephone contact is [phone]. Sincerely, Dr Suleman Colin MD, SAVANNAH [facility] - Urology Compassionate Specialist Care for the Genitourinary System Coding Level of Care Code Est Pt Level 3 (59337) Complex EM visit Add On G2211 Diagnoses Erectile disorder N52.9 Drug-induced gynecomastia N62; T50.905A Hypogonadism in male E29.1
--- OUTSIDE RECORDS SUMMARY | 2025-02-21 14:41 | XMS_ITS | Clinical Summary ---
Author Organization [facility] Address [address] [facility] [address] [place] [address] Phone Care Team Providers Care Supervisor Slate Splitting Name Role Phone John Mcintosh MD Primary Care Pr ovider Allergies No known active allergies Social History Tobacco Use Types Packs/Day Years Used Date Smoking Tobacco: Never Assessed Education Answer Date Recorded Are you interested in more education? Not on viktor e 09/03/2024 Are you concerned about learning? Not on file 09/03/2024 No 09/03/2024 No 09/03/2024 Digital Access Answer Date Recorded No 09/03/2024 No 09/03/2024 Reliable internet access at home? Not on file 09/03/2024 Device with a working camera? Not on file Intimate Partner Violence Answer Date R ecorded Are you denied basic needs s uch as food, clothing, or medical care? No 09/03/2024 In the past 12 months have y ou been in a relationship with a person who hurts, threatens, or tries to control you? No 09/03/2024 Are you denied basic needs s uch as food, clothing, or medical care? No 09/03/2024 In the past 12 months have y ou been in a relationship with a person who hurts, threatens, or tries to control you? No 09/03/2024 Sex and Gender Information Value Date Recorded Sex Assigned at Not on file Legal Sex Male 10:03 AM EST Gender Identity Male 09/03/2024 10:53 AM EST Sexual Orientation Not on file Last Filed Vital Signs Vital Sign Reading Time Taken Comments Blood Pressure 135/84 09/03/2024 1:01 PM EST Pulse 75 09/03/2024 1:01 PM EST Temperature 36.6 C (97.9 F) 09/03/2024 1:01 PM EST Respiratory Rate 18 09/03/2024 1:01 PM EST Oxygen Saturation 97% 09/03/2024 1:01 PM EST Inhaled Oxygen Concentration - - Weight 122.5 kg (270 lb) 09/03/2024 10:08 AM EST Height - - Body Mass Index - - Plan of Treatment Health Maintenance Due Date Last Done Comments Adult Td,Tdap Booster 1988 DEPRESSION SCREENING 2000 SMOKING Hx and SMOKELESS TOB ACCO SCREENING 2001 HEPATITIS C SCREENING 2006 HIV ONE-TIME SCREENING (18-6 5 YEARS) 2006 COVID-19 VACCINE (2023-2 5 season) 2024 LIPID PANEL 10/21/2026 10/21/2021 HEPATITIS A VACCINES Aged Out No long er eligible based on patient's age to complete this topic HIB VACCINES Aged Out No longer eligi ble based on patient's age to complete this topic MENINGOCOCCAL VACCINES (ACWY) Aged Out No longer eligible based on patient's age to complete this topic MENINGOCOCCAL VACCINES (B) Aged Out N o longer eligible based on patient's age to complete this topic PNEUMOCOCCAL VACCINES (0-49 years) Aged Out No longer eligible based on patient's age to complete this topic Medical Devices Not on file Insurance [facility] [employer] C[address] [place] [address] [address] C3 ACO C3 [facility] C3 ACO Care Teams Supervisor Slate Splitting Relationship Specialty Start Date End Date Jhon Mcintosh MD PCP - General Internal Medicine 09/03/24 Additional Source Comments The information contained in this document represents components of the legal health record. It is not the complete legal health record[facility]
--- OUTSIDE RECORDS SUMMARY | 2025-02-21 14:41 | XMS_ITS | Clinical Summary ---
Author Organization [employer] Address [address] [place] [address] 7 [place] [address] Care Team Providers Care Accounts Receivable Representative Name Role Phone John Mcintosh MD Primary [...] Tobacco Screening 2000 Family Planning (PISQ) 2003 HPV Vaccines (1 - Male 3-dos e series) 2003 Hepatitis C Screening 2006 DTaP/Tdap/Td Vaccines [...] LAB SYSTEM LDL Cholesterol 54 mg/dL (calc) [facility] Comment: Reference range: <100 Desirable range <100 mg/dL for primary prevention; <70 mg/dL for patients with CHD or diabetic patients with > or = 2 CHD risk factors. LDL-C is now calculated using the Corona-Mills calculation, which is a validated novel method providing better accuracy than the Friedewald equation in the estimation of LDL-C. Corona SS et al. LISANDRO. 2013;310(19): 8769-0625 (http://education.[employer].Sweetgreen/faq/VKQ455) Non-HDL Cholesterol 69 <130 mg/dL (calc) [facility] Comment: For patients with diabetes plus 1 major ASCVD risk factor, treating to a non-HDL-C goal of <100 mg/dL (LDL-C of <70 mg/dL) is considered a therapeutic option. Triglycerides 72 <150 mg/dL [facility] 10/21/2021 11:3 7 AM EDT us John Mcintosh MD LAB BLOOD ORDERABLES Final Result [facility] [address] from Last 3 Months or Most Recently Relevant to Health Maintenance Insurance [place], [place] Tk20 C3 Care Teams Accounts Receivable Representative Relationship Specialty Start Date End Date John Mcintosh MD [address] [place] [id number] PCP - General Internal Medicine 04/12/19
== END 2025-02-21 16:24 | disposition home or self-care (01) ==
LOC: HO.HUSH 13:43
PROVIDERS: PCP Internal Medicine; Visit Provider Urology
DX: E29.1 Testicular hypofunction (principal); N52.9 Male erectile dysfunction, unspecified; T50.905A Adverse effect of unspecified drugs, medicaments and biological substances, initial encounter
CPT/HCPCS: 99213

== ENCOUNTER → 2025-02-21 13:43 | Outpatient (BNVA) | payer MEDICAID, SELFPAY | PROVIDERS: PCP Internal Medicine; Visit Provider Urology | DX: E29.1 Testicular hypofunction (principal); T50.905A Adverse effect of unspecified drugs, medicaments and biological substances, initial encounter; N52.9 Male erectile dysfunction, unspecified | CPT/HCPCS: 99212 ==

== ENCOUNTER 2025-03-28 11:24 | Outpatient (AMB) | payer MEDICAID, SELFPAY ==
--- NOTE | 2025-03-28 11:39 | MHC.OFFVIS ---
Vital Signs 03/28/25 11:47 Height 6 ft 1 in Weight 271 lb BMI 35.8 BP 146/78 H Blood Pressure Location Lt brachial Position Sitting Pulse 97 Intake Visit Reasons: Hypertrophy of breast Intake Note: Patient is seen in office for hypertrophy of the breast. Pt c/o: for a couple of yrs started feeling a mass, was very painful, was given testosterone and made it worse, when leaning chest is painful, both side has a mass, left side is worse on Anastrozole us/mm:09/11/24 (Dx: Gynecomastia Lt Larger) Surveyor Geophysical Prospecting Required: No Accompanied by: Self / Same As Patient Allergies No Known Allergies (No Known Allergies*) Allergy (Verified 03/28/25 11:44) Medication List - Last Reconciled 03/28/25 by Jairo Stewart MD anastrozole 0.5 mg (1/2 x 1 mg) PO 2XW 90 days ibuprofen 400 mg PO Q6H PRN needle (disp) 18 G (BD Regular Bevel [place]) As directed needle (disp) 18 G (BD Regular Bevel [place]) As directed - draw up testosterone needle (disp) 22 G (BD Regular Bevel [place]) For testosterone injection weekly safety needles (Easy Touch FlipLock Needle) As directed - administer testosterone syringe (disposable) (BD Luer-Amie Syringe) Testosterone injection weekly testosterone cypionate (Depo-Testosterone) 100 mg (0.5 mL) IM QWEEK 4 weeks HPI Comments Details: 34-year-old male patient with hypogonadism and erectile disorder currently on anastrozole and testosterone presenting for evaluation of bilateral gynecomastia left greater than right. He reports increased pain associated with the left breast in his concerned now hard left breast is. The right breast is much softer but still has some soreness with palpation. 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 He denies any previous surgery in the breast. He is family history is negative for breast cancer. Workup with mammogram of the bilateral breasts on 09/11/2022 revealed mild bilateral gynecomastia, slightly greater on the left. Left breast ultrasound on 09/11/2022 also reveals no cystic or solid mass or architectural abnormality. No skin thickening or edema tracking and soft tissue planes is identified. There is trace subareolar gynecomastia corresponding to the mammography. He presents today to discuss bilateral lumpectomies. [facility] Medical History Arthritis Carpal tunnel syndrome on both sides Nephrolithiasis Surgical History History of arthroscopy Review of Systems Const All systems reviewed & are unremarkable except as noted in HPI and below Physical Exam Vital Signs: Last Vital Signs Pulse 97 03/28/25 11:47 BP 146/78 H 03/28/25 11:47 BMI result Body Mass Index 35.8 Const General: cooperative and no acute distress Nutritional Appearance: well nourished Orientation/consciousness: patient oriented x3 Limitations: no limitations HEENT Head: Yes normocephalic and Yes atraumatic Ears: hearing grossly normal bilaterally Chest Other: Left greater than right subareolar thickened breast tissue consistent with gynecomastia. Left breast has significantly more tenderness in the right side. No overlying skin changes are appreciated. Chest/axillae images:  1. 2. Resp Effort & Inspection: normal respiratory effort, no audible wheezes, no cough and no respiratory distress Cardio Jugular venous distension: no JVD GI Inspection: Yes normal to inspection Skin Other: Warm, dry, no rash Neuro General: patient oriented x3 Extrem General: Yes no clubbing, cyanosis or edema Assessment & Plan Assessment & Plan (1) Drug-induced gynecomastia: Code(s): N62 - Hypertrophy of breast; T50.905A - Adverse effect of unspecified drugs, medicaments and biological substances, initial encounter Category: Medical Plan 34-year-old male patient presenting with evidence of bilateral gynecomastia left greater than right which is causing discomfort especially in the left breast. Workup with mammogram and ultrasound several years ago was negative for suspicious findings but did reveal bilateral gynecomastia. The patient feels that the symptoms are worsening in his requested excision of the bilateral breast lumps. After discussion of the procedure, risks and alternatives, he consents to a bilateral breast lumpectomy. This will be scheduled as a short-stay surgery. Coding Level of Care Code New Pt Level 4 (50160) Diagnoses Drug-induced gynecomastia N62; T50.905A
[2025-03-28 11:47] VITALS: BP 146/78; PULSE 97; BMI 35.8
--- OUTSIDE RECORDS SUMMARY | 2025-03-28 15:35 | XMS_ITS | Clinical Summary ---
Author Organization [email or web address] Address [address] [place] [address] 7 [place] [address] Care Team Providers Care Shank Inspector Name Role Phone John Mcintosh MD Primary Care Provider Allergies No known active allergies Active Problems Problem Noted Date Diagnosed Date Vitamin D deficiency 10/25/2021 Hypogonadism in male 10/25/2021 Encounters Date Type Department Care Team Description 03/20/2025 Telephone [facility] [address] [place] [phone] John Mcintosh MD Referral from Last 3 Months Social History Tobacco [...] COVID-19 Vaccine (1 - 2023-2 5 season) 2025 Influenza Vaccine (#1) 2025 Lipid Panel 10/21/2026 [...] [facility] Comment: Reference range: <100 Desirable range <100 mg/dL for primary prevention; <70 mg/dL for patients with CHD or diabetic patients with > or = 2 CHD risk factors. LDL-C is now calculated using the Altaf calculation, which is a validated novel method providing better accuracy than the Friedewald equation in the estimation of LDL-C. Corona LOPEZ et al. LISANDRO. 2013;310(19): 4717-0249 (http://education.DLC.SheFinds Media/faq/CWS943) Non-HDL Cholesterol 69 <130 mg/dL (calc) [facility] Comment: For patients with diabetes plus 1 major ASCVD risk factor, treating to a non-HDL-C goal of <100 mg/dL (LDL-C of <70 mg/dL) is considered a therapeutic option. Triglycerides 72 <150 mg/dL [facility] 10/21/2021 11:3 7 AM EDT John Mcintosh MD LAB BLOOD ORDERABLES Final Result [facility] [address] from Last 3 Months or Most Recently Relevant to Health Maintenance [facility] Care Teams Shank Inspector Relationship Specialty Start Date End Date John Mcintosh MD [address] [place] [id number] PCP - General Internal Medicine 04/12/19
--- OUTSIDE RECORDS SUMMARY | 2025-03-28 15:35 | XMS_ITS | Encounter Summary ---
Author Organization [employer] Address [address] [place] [address] 7t [place] [address] Care Team Providers Care Supervisor Grower Name Role Phone John Mcintosh MD Primary Care Provider [phone] Encounter Details Date Type Department Care Team ([facility] st Contact Info) Description 10/15/2022 Orders Only [facility] CHC MED & PEDS [address] [place], [place] [phone] John Mcintosh MD [address] [place] [address] Hypogonadism in male (Primary Dx) Social History [...] Total 0.30 < OR = 4.00 ng/mL [employer] [place] [employer] Comment: The total PSA value from this assay system is standardized against the WHO standard. The test result will be approximately 20% lower when compared to the equimolar-standardized total PSA ([place]). Comparison of serial PSA results should be [...] 9:01 AM EDT 10/15/2022 9:02 AM EDT [facility] - 10/20/2022 3:48 PM EDT PATIENT REFUSED SOME TESTING; PATIENT ENCOURAGED TO RETURN. us John Mcintosh MD LAB BLOOD ORDERABLES Final Result [facility] [address], [place] [address] [employer] [place] [employer] [address] [place] [address] * (ABNORMAL) LH (10/15/2022 9:01 AM EDT) LH 1.1(L) 1.5 - 9.3 mIU/mL [employer] [place] [employer] Blood Venous blood specimen / Unknown 10/15/2022 9:01 AM EDT 10/15/2022 9:02 AM EDT Narrative [facility] - 10/20/2022 3:48 PM EDT PATIENT REFUSED SOME TESTING; PATIENT ENCOURAGED TO RETURN. John Mcintosh MD LAB BLOOD ORDERABLES Final Result Performing Organization Address City/[facility]/ZIP Co de Phone Number [address] [phone] [employer] [place] [employer] [address] [place] [phone] * Sex Hormone Binding Globulin (SHBG) (10/15/2022 9:01 AM EDT) Sex Hormone Binding Globulin 12 10 - 50 nmol/L [employer] [place] [employer] Blood Venous blood specimen / Unknown 10/15/2022 9:01 AM EDT 10/15/2022 9:02 AM EDT Narrative [facility] - 10/20/2022 3:48 PM EDT PATIENT REFUSED SOME TESTING; PATIENT ENCOURAGED TO RETURN. us John Mcintosh MD LAB BLOOD ORDERABLES Final Result Performing Organization Address City/[facility]/ZIP Co de Phone Number [address] [phone] [employer] [place] [employer] [address] [place] [phone] * Prolactin (10/15/2022 9:01 AM EDT) Prolactin 7.7 2.0 - 18.0 ng/mL [employer] [place] [employer] Blood Venous blood specimen / Unknown 10/15/2022 9:01 AM EDT 10/15/2022 9:02 AM EDT Narrative [facility] - 10/20/2022 3:48 PM EDT PATIENT REFUSED SOME TESTING; PATIENT ENCOURAGED TO RETURN. John Mcintosh MD LAB BLOOD ORDERABLES Final Result Performing Organization Address [facility]/RUST Co de Phone Number [address], [facility] [place] [address] [employer] [facility] [address] [place] [address] * FSH (10/15/2022 9:01 AM EDT) Pathologist [facility] FSH 3.5 1.6 - 8.0 mIU/mL [employer] [place] [employer] Blood Venous blood specimen / Unknown 10/15/2022 9:01 AM EDT 10/15/2022 9:02 AM EDT [facility] - 10/20/2022 3:48 PM EDT PATIENT REFUSED SOME TESTING; PATIENT ENCOURAGED TO RETURN. John Mcintosh MD LAB BLOOD ORDERABLES Final Result Performing Organization Address [facility] de Phone Number [address], [place] [address] [employer] [facility] [address] [place] [phone] * Estradiol (10/15/2022 9:01 AM EDT) [facility] Estradiol <15 < OR = 39 pg/mL [employer] [place] [employer] Comment: Reference range established on post-pubertal patient population. No pre-pubertal reference range established using this assay. For any patients for whom low Estradiol levels are anticipated (e.g. males, pre-pubertal children and hypogonadal/post-menopausal females), the [employer] [facility] Estradiol, Ultrasensitive, LCMSMS assay is recommended (order code [id number]). Please note: patients being treated with the drug fulvestrant (Faslodex(R)) have demonstrated significant interference in immunoassay methods for estradiol measurement. The cross reactivity could lead to falsely elevated estradiol test results leading to an inappropriate clinical assessment of estrogen status. [employer] order code [id number], Ultrasensitive LC/MS/MS demonstrates negligible cross reactivity with fulvestrant. Blood Venous blood specimen / Unknown 10/15/2022 9:01 AM EDT 10/15/2022 9:02 AM EDT Narrative [facility] - 10/20/2022 3:48 PM EDT PATIENT REFUSED SOME TESTING; PATIENT ENCOURAGED TO RETURN. us John Mcintosh MD LAB BLOOD ORDERABLES Final Result [facility] [address], [place] [address] [employer] [facility] [address] [place] [address] * (ABNORMAL) Testosterone, Free (Dialysis) And Total, MS (10/15/2022 9:01 AM EDT) Pathologist [facility] Testosterone, Total, MS 48(L) 250 - 1,100 ng/dL [employer]/ [employer] [facility] Comment: For additional information, please refer to http://education.[employer]/faq/ GyihnKkuormcgvxlgCVEYEBTDJ326 (This link is being provided for informational/ educational purposes only.) This test was developed and its analytical performance characteristics have been determined by [employer] [place], [place]. It has not been cleared or approved by the U.S. Food and Drug Administration. This assay has been validated pursuant to the CLIA regulations and is used for clinical purposes. Testosterone, Free 9.7(L) 35.0 - 155.0 pg/mL [employer]/[facility] Comment: This test was developed and its analytical performance characteristics have been determined by [employer] [place], [place]. It has not been cleared or [...] LAB BLOOD ORDERABLES Final Result [facility] [address] [facility], [facility], [place] [address] [facility] [address] [address] documented in this encounter Visit Diagnoses Diagnosis Hypogonadism in male- Primary documented in this encounter Care Teams Supervisor Grower Relationship Specialty Start Date End Date John Mcintosh MD [address] [place] [phone] PCP - General Internal Medicine 04/12/19 documented as of this encounter
--- OUTSIDE RECORDS SUMMARY | 2025-03-28 15:35 | XMS_ITS | Clinical Summary ---
Author Organization [facility] Address [address] [facility] [address] [place] [phone] Phone Care Team Providers Care Timber Killer Name Role Phone John Mcintosh MD Primary [...] HIV ONE-TIME SCREENING (18-6 5 YEARS) 2006 INFLUENZA VACCINE (#1) 2025 COVID-19 VACCINE ( - 2023-2 5 season) 2025 LIPID PANEL 10/21/2026 10/21/2021 HEPATITIS A VACCINES [...] topic Medical Devices Not on file Insurance [facility]IVE C3 ACO C3 ACO [facility] C3 ACO Care Teams Timber Killer Relationship Specialty Start Date End Date John Mcintosh MD PCP - General Internal Medicine 09/03/24 Additional Source Comments The information contained in this document represents components of the legal health record. It is not the complete legal health record.[facility]
== END 2025-03-28 12:03 | disposition home or self-care (01) ==
LOC: HO.HGS 11:25
PROVIDERS: PCP Internal Medicine; Visit Provider Surgery
DX: N62 Hypertrophy of breast (principal); T50.905A Adverse effect of unspecified drugs, medicaments and biological substances, initial encounter
CPT/HCPCS: 99204

== ENCOUNTER → 2025-03-28 11:24 | Outpatient (BNVA) | payer MEDICAID, SELFPAY | PROVIDERS: PCP Internal Medicine; Visit Provider Surgery | DX: N62 Hypertrophy of breast (principal); T50.905A Adverse effect of unspecified drugs, medicaments and biological substances, initial encounter | CPT/HCPCS: 99202 ==

== ENCOUNTER 2025-05-10 05:58 | Day surgery (SDC) | payer MEDICAID, SELFPAY ==
--- OUTSIDE RECORDS SUMMARY | 2025-03-31 13:46 | XMS_ITS | Encounter Summary ---
Author Organization [employer] Address [address] [place] [address] 7t [place] [address] Care Team Providers Care Neurodiagnostic Tech Name Role Phone John Mcintosh MD Primary Care Provider Encounter Details Date Type Department Care Team ([facility] st Contact Info) Description 10/15/2022 Orders Only [facility] CHC MED & PEDS [address] [place], [place] [phone] John Mcintosh MD [address] [place] [address] Hypogonadism in male (Primary Dx) Social History [...] Total 0.30 < OR = 4.00 ng/mL [employer] [place] [employer] Comment: The total PSA value from this assay system is standardized against the WHO standard. The test result will be approximately 20% lower when compared to the equimolar-standardized total PSA ([place]). Comparison of serial PSA results should be [...] 9:01 AM EDT 10/15/2022 9:02 AM EDT [facility] - 10/20/2022 3:48 PM EDT PATIENT REFUSED SOME TESTING; PATIENT ENCOURAGED TO RETURN. us John Mcintosh MD LAB BLOOD ORDERABLES Final Result [facility] [address], [place] [address] [employer] [place] [employer] [address] [place] [address] * (ABNORMAL) LH (10/15/2022 9:01 AM EDT) LH 1.1(L) 1.5 - 9.3 mIU/mL [facility] [place] [employer] Blood Venous blood specimen / Unknown 10/15/2022 9:01 AM EDT 10/15/2022 9:02 AM EDT Narrative [facility] - 10/20/2022 3:48 PM EDT PATIENT REFUSED SOME TESTING; PATIENT ENCOURAGED TO RETURN. John Mcintosh MD LAB BLOOD ORDERABLES Final Result Performing Organization Address City/[facility]/ZIP Co de Phone Number [address] [phone] [employer] [place] [employer] [address] [place] [phone] * Sex Hormone Binding Globulin (SHBG) (10/15/2022 9:01 AM EDT) Sex Hormone Binding Globulin 12 10 - 50 nmol/L [facility] [place] [employer] Blood Venous blood specimen / Unknown 10/15/2022 9:01 AM EDT 10/15/2022 9:02 AM EDT Narrative [facility] - 10/20/2022 3:48 PM EDT PATIENT REFUSED SOME TESTING; PATIENT ENCOURAGED TO RETURN. us John Mcintosh MD LAB BLOOD ORDERABLES Final Result Performing Organization Address City/[facility]/ZIP Co de Phone Number [address] [phone] [employer] [place] [employer] [address] [place] [phone] * Prolactin (10/15/2022 9:01 AM EDT) Prolactin 7.7 2.0 - 18.0 ng/mL [facility] [place] [employer] Blood Venous blood specimen / Unknown 10/15/2022 9:01 AM EDT 10/15/2022 9:02 AM EDT Narrative [facility] - 10/20/2022 3:48 PM EDT PATIENT REFUSED SOME TESTING; PATIENT ENCOURAGED TO RETURN. John Mcintosh MD LAB BLOOD ORDERABLES Final Result Performing Organization Address [facility] Co de Phone Number [address], [facility] [place] [address] [email or web address] [address] [place] [address] * FSH (10/15/2022 9:01 AM EDT) Pathologist [facility] FSH 3.5 1.6 - 8.0 mIU/mL [employer] [place] [employer] Blood Venous blood specimen / Unknown 10/15/2022 9:01 AM EDT 10/15/2022 9:02 AM EDT [facility] - 10/20/2022 3:48 PM EDT PATIENT REFUSED SOME TESTING; PATIENT ENCOURAGED TO RETURN. John Mcintosh MD LAB BLOOD ORDERABLES Final Result Performing Organization Address [facility] de Phone Number [address], [place] [address] [email or web address] [address] [place] [phone] * Estradiol (10/15/2022 9:01 AM EDT) [facility] Estradiol <15 < OR = 39 pg/mL [employer] [place] [employer] Comment: Reference range established on post-pubertal patient population. No pre-pubertal reference range established using this assay. For any patients for whom low Estradiol levels are anticipated (e.g. males, pre-pubertal children and hypogonadal/post-menopausal females), the [facility] Estradiol, Ultrasensitive, LCMSMS assay is recommended (order code [id number]). Please note: patients being treated with the drug fulvestrant (Faslodex(R)) have demonstrated significant interference in immunoassay methods for estradiol measurement. The cross reactivity could lead to falsely elevated estradiol test results leading to an inappropriate clinical assessment of estrogen status. [employer] order code [id number], Ultrasensitive LC/MS/MS demonstrates negligible cross reactivity with fulvestrant. Blood Venous blood specimen / Unknown 10/15/2022 9:01 AM EDT 10/15/2022 9:02 AM EDT Narrative [facility] - 10/20/2022 3:48 PM EDT PATIENT REFUSED SOME TESTING; PATIENT ENCOURAGED TO RETURN. us John Mcintosh MD LAB BLOOD ORDERABLES Final Result [facility] [address], [place] [address] [facility] [address] [place] [address] * (ABNORMAL) Testosterone, Free (Dialysis) And Total, MS (10/15/2022 9:01 AM EDT) Pathologist [facility] Testosterone, Total, MS 48(L) 250 - 1,100 ng/dL [employer]/ [employer] [facility] Comment: For additional information, please refer to http://education.TrustedPlaces/faq/ GgjvoTbzlhqzkughlRTQBIPIBC345 (This link is being provided for informational/ educational purposes only.) This test was developed and its analytical performance characteristics have been determined by [employer] [place], [place]. It has not been cleared or approved by the U.S. Food and Drug Administration. This assay has been validated pursuant to the CLIA regulations and is used for clinical purposes. Testosterone, Free 9.7(L) 35.0 - 155.0 pg/mL [employer]/[employer] [facility] Comment: This test was developed and its analytical performance characteristics have been determined by [employer] [place], [place]. It has not been cleared or [...] LAB BLOOD ORDERABLES Final Result [facility] 200 [facility], [facility], [place] [address] [email or web address] [address] [facility] [place] [address] documented in this encounter Visit Diagnoses Diagnosis Hypogonadism in male- Primary documented in this encounter Care Teams Neurodiagnostic Tech Relationship Specialty Start Date End Date John Mcintosh MD [address] [place] [phone] PCP - General Internal Medicine 04/12/19 documented as of this encounter
--- OUTSIDE RECORDS SUMMARY | 2025-03-31 13:46 | XMS_ITS | Clinical Summary ---
Author Organization [facility] Address [address] [facility] [address] [place] [address] Phone Care Team Providers Care Spot Machine Operator Name Role Phone John Mcintosh MD [...] topic Medical Devices Not on file Insurance [facility] C3 ACO C3 ACO [facility] C3 ACO Care Teams Spot Machine Operator Relationship Specialty Start Date End Date John Mcintosh MD PCP - General Internal Medicine 09/03/24 Additional Source Comments The information contained in this document represents components of the legal health record. It is not the complete legal health record.[facility]
--- OUTSIDE RECORDS SUMMARY | 2025-03-31 13:46 | XMS_ITS | Clinical Summary ---
Author Organization [employer] Address [address] [place] [address] [address] [place] [address] Care Team Providers Care Vault Person Name Role Phone John Mcintosh MD Primary Care Provider Allergies No known active allergies Active Problems Problem Noted Date Diagnosed Date Vitamin D deficiency 10/25/2021 Hypogonadism in male 10/25/2021 Encounters Date Type Department Care Team Description 03/20/2025 Telephone [facility] MEDICINE [address] [place] [phone] John Mcintosh MD Referral from Last 3 [...] LDL-C. Corona LOPEZ et al. LISANDRO. 2013;310(19): 9962-6705 (http://education.[employer]/faq/YEV577) Non-HDL Cholesterol 69 <130 mg/dL (calc) [facility] Comment: For patients with diabetes plus 1 major ASCVD risk factor, treating to a non-HDL-C goal of <100 mg/dL (LDL-C of <70 mg/dL) is considered a therapeutic option. Triglycerides 72 <150 mg/dL [facility] 10/21/2021 11:3 7 AM EDT John Mcintosh MD LAB BLOOD ORDERABLES Final Result [facility] [address] from Last 3 Months or Most Recently Relevant to Health Maintenance [facility] Care Teams Vault Person Relationship Specialty Start Date End Date John Mcintosh MD [address] [place] [id number] PCP - General Internal Medicine 04/12/19
--- NOTE | 2025-05-08 10:23 | HO.ANESPROP2 ---
Documented by User: Eli Witt NP 05/08/25 10:24 HPI - Anesthesia Eval Consult details Narrative: 34yo M for Bilateral Breast Lumpectomy PMFSH Active Problems Active Problems: All Active Problems Drug-induced gynecomastia (Acute) Screening PSA (prostate specific antigen) (Acute) Erectile disorder (Acute) Hypogonadism in male (Acute) Past Medical History Medical History Arthritis Carpal tunnel syndrome on both sides Nephrolithiasis Surgical History Surgical History H/O hernia repair Social History Social History Patient Tobacco Use Status: Never used Tobacco Use of substances other than those prescribed or required for medical reasons: No Are you DNR?: No Advance Directives: No Advance Directives Information Provided: Yes Meds Allergies Allergy/AdvReac Type Severity Reaction Status Date / Time No Known Allergies (No Known Allergy Verified 03/28/25 11:44 Allergies*) Assessment and Plan Assessment Anesthesia Assessment: Chart Reviewed Documented by User: Vamsi Martinez MD 05/10/25 07:13 PMFSH Past Medical History Medical History Arthritis Carpal tunnel syndrome on both sides Nephrolithiasis Family History Family history of problems with anesthesia: No Surgical History Surgical History H/O hernia repair History of Problems with Anesthesia: No Social History Social History Patient Tobacco Use Status: Never used Tobacco Use of substances other than those prescribed or required for medical reasons: No Are you DNR?: No Advance Directives: No Advance Directives Information Provided: Yes Meds Allergies Allergy/AdvReac Type Severity Reaction Status Date / Time No Known Allergies (No Known Allergy Verified 03/28/25 11:44 Allergies*) Exam Exam Date and Time: 05/10/2025 Airway Mallampati Class: I TM Dist: >3cm Neck ROM: Full Heart: rrr Lungs: ctab vesicular Assessment and Plan Assessment Anesthesia Assessment: Anesthesia Plan Discussed Final Anesthetic Review Family History of Problems with Anesthesia: No History of Problems with Anesthesia: No NPO: Yes ASA Class: II Final Preanesthetic Review: No Changes in Pt Med Stat, Meds/Allgs Chart Reviewed, Consent Obtained/Reviewed and Anes Risks/Benef Reviewed Patient Risk: Low Procedure Risk: Low Anesthetic Plan Anesthetic Plan: GA Disposition: Standard PACU
[2025-05-08 10:59] VITALS: BMI 35.8
[2025-05-10 06:09] VITALS: BMI 35.1
[2025-05-10 06:25] VITALS: BP 129/81; PULSE 82; RESP 16; TEMP 36.6; O2SAT 97
[2025-05-10] MEDS: Lactated Ringers 1,000 ML 100 ML IVCONT (06:35)
--- NOTE | 2025-05-10 07:24 | P.HPSUR_ITS ---
Pre-Procedural Eval Section A - 24 Hr Update-Section A only Date of Service: 05/10/25 The patient is an INPATIENT: No Changes since office visit: Yes Patient answered all questions; No Cold of Flu in the past 2 weeks, No New Medical Problems and No Changes in Medication The patient has been examined within 24 hours of the surgical procedure. The History & Physical has been completed within 30 days and I have reviewed it.: No Section B - Complete if H&P > 30 days Chief Complaint: Adverse effect of unspecified drugs, medicaments Details of Present Illness: No change in his chest symptoms, continued bilateral breast masses Relevant Family History (Specify if Yes): No Relevant Social History: None Present Medications: see Short Stay Collaborative assessment Medical History: No relevant PMH History of Previous Operations: No relevant previous surgery Allergies: Allergies Allergy/AdvReac Type Severity Reaction Status Date / Time No Known Allergies (No Known Allergy Verified 03/28/25 11:44 Allergies*) Review of Systems Sugical H&P ROS: Negative: Constitution, Cardiovascular, Respiratory, Neurological, Psychiatric, Allergic/Immunologic, Gastrointestinal, Genitourinary, Musculoskeletal, Integumentary and Endocrine Exam Surgical H&P Exam: Normal: HEENT, Normal: Heart, Normal: Lungs, Normal: Extrem ities, Normal: Abdomen and Normal: Skin Plan Diagnosis/Plan: Unchanged I have reviewed the history and physical and performed a pertinent physical examination on my patient. No changes have occurred unless specified. Time Spent With Patient Time: Total time managing care of this patient today ____ minutes.
[2025-05-10 08:56] VITALS: BP 146/82; PULSE 81; RESP 15; TEMP 36.4; O2SAT 92
[2025-05-10 09:01] VITALS: BP 148/81; PULSE 84; RESP 14; O2SAT 93
--- NOTE | 2025-05-10 09:05 | W.PM.OPN ---
Operative Note Operative Note Date of Service: 05/10/25 Narrative: Preoperative diagnosis: Bilateral gynecomastia Postoperative diagnosis: Same Procedure: Excision bilateral gynecomastia Surgeon: Jairo Stewart MD Degreasing Wheel Operator: Lucero Martinez PA-C Anesthesia: General LMA Indications for procedure: 34-year-old male patient presenting with painful lumps in bilateral breast. Workup with mammogram and ultrasound confirmed bilateral gynecomastia with no suspicious findings. The patient has requested bilateral excisions. Operative findings: Bilateral areas of gynecomastia Specimen: Bilateral gynecomastia Estimated blood loss: 10 mL Complications: None Procedure details: Patient was brought to the OR and placed in a supine position. After administering general anesthesia the patient's bilateral breasts were prepped with ChloraPrep and draped in a sterile fashion. A surgical time-out was called the consent confirmed. Patient received preoperative antibiotics and Venodyne boots were in place. Local anesthesia was infiltrated below the left nipple areolar complex. A curvilinear incision was made in the upper outer quadrant and carried out through subcutaneous tissue. Superior and inferior skin flaps were then created. The palpable gynecomastia was then grasped with an Allis clamp. Electrocautery was then used to dissect the firm breast tissue from the surrounding subcutaneous tissue and surrounding fatty tissue. Hemostasis was assured using electrocautery. When the lesion was completely excised and was passed off the table and sent to pathology for further examination labeled as left breast gynecomastia. Wounds were then irrigated with saline solution. Attention was then directed to the right breast were again local anesthesia was infiltrated in a curvilinear fashion in the upper outer quadrant. A curvilinear incision was then made with a scalpel in the upper outer quadrant carried out through subcutaneous tissue. Superior and inferior skin flaps were then created with the electrocautery. The gynecomastia was grasped with an Allis clamp and dissected from the surrounding subcutaneous tissue using electrocautery. Hemostasis was assured using electrocautery. The lesion was removed and sent to pathology for further examination. This was labeled as right breast gynecomastia. Wounds were irrigated with saline solution and suctioned dry. Both wounds were then closed using interrupted 3-0 Polysorb sutures to reapproximate deep breast tissue as well as dermis. Skin was closed using a running subcuticular 4-0 Polysorb suture. Steri-Strips, 4 x 4 gauze and Tegaderm were then applied. The patient tolerated the procedure well. Sponge, instrument, and needle counts were reported as correct. The patient was transferred to PACU in stable condition.
[2025-05-10 09:06] VITALS: BP 140/79; PULSE 85; RESP 11; O2SAT 95
[2025-05-10 09:11] VITALS: BP 138/69; PULSE 82; RESP 15; O2SAT 95
[2025-05-10 09:26] VITALS: BP 138/73; PULSE 84; RESP 12; TEMP 36.7; O2SAT 95
== END 2025-05-10 09:55 | disposition home or self-care (01) ==
PROVIDERS: PCP Internal Medicine; Visit Provider Surgery
PROC: (CPT 19301; principal; 2025-05-10 07:30)
DX: T50.905A Adverse effect of unspecified drugs, medicaments and biological substances, initial encounter (principal); N62 Hypertrophy of breast; N52.9 Male erectile dysfunction, unspecified; M19.90 Unspecified osteoarthritis, unspecified site; N20.0 Calculus of kidney; Z79.899 Other long term (current) drug therapy; Z79.811 Long term (current) use of aromatase inhibitors; Z98.890 Other specified postprocedural states
CPT/HCPCS: 19300; 88307; J0131; J0690; J1100; J1885; J2003; J2371; J2405; J2704; J2795; J3010

== ENCOUNTER → 2025-05-10 05:58 | Outpatient (BNV) | payer MEDICAID, SELFPAY | PROVIDERS: PCP Internal Medicine; Visit Provider Surgery | DX: N62 Hypertrophy of breast (principal) | CPT/HCPCS: 19300 ==

== ENCOUNTER 2025-05-17 14:31 | Outpatient (AMB) | payer MEDICAID, SELFPAY ==
--- NOTE | 2025-05-17 14:32 | A.OFFVIS_ITS ---
Vital Signs 05/17/25 14:39 Height 6 ft 1 in Weight 270 lb BMI 35.6 BP 141/67 H Blood Pressure Location Lt brachial Position Sitting Pulse 86 Intake Visit Reasons: post bilateral lumpectomy Intake Note: Patient is seen in office for post op assessment post bilateral lumpectomy. Pt c/o: here to discuss surgical results Political Consultant Required: No Accompanied by: Self / Same As Patient Allergies No Known Allergies (No Known Allergies*) Allergy (Verified 05/17/25 14:41) Medication List - Last Reconciled 05/18/25 by Jairo Stewart MD anastrozole 0.5 mg (1/2 x 1 mg) PO 2XW 90 days ibuprofen 400 mg PO Q6H PRN needle (disp) 18 G (BD Regular Bevel [place]) As directed needle (disp) 18 G (BD Regular Bevel [place]) As directed - draw up testosterone needle (disp) 22 G (BD Regular Bevel [place]) For testosterone injection weekly oxycodone 5 mg PO Q6H PRN safety needles (Easy Touch FlipLock Needle) As directed - administer testosterone syringe (disposable) (BD Luer-Amie Syringe) Testosterone injection weekly testosterone cypionate (Depo-Testosterone) 100 mg (0.5 mL) IM QWEEK 4 weeks HPI Comments Details: Patient reports feeling hardness in the left breast not felt in the right breast. Feels that none of of the breast mass was removed. [facility] Medical History Arthritis Carpal tunnel syndrome on both sides Nephrolithiasis Surgical History History of lumpectomy of both breasts (05/10/25) H/O hernia repair Social History Patient Tobacco Use Status: Never used Tobacco Physical Exam Vital Signs: Last Vital Signs Pulse 86 05/17/25 14:39 BP 141/67 H 05/17/25 14:39 BMI result Body Mass Index 35.6 Const General: no acute distress Nutritional Appearance: well nourished Orientation/consciousness: patient oriented x3 Chest Other: Increased ecchymosis noted in the left breast compared to the right breast. There is induration consistent with postoperative change and probable small hematoma. Right breast is soft without erythema. No palpable gynecomastia is appreciated. Both incisions are clean and intact without redness or discharge. Skin Other: Warm, dry, no rash Neuro General: patient oriented x3 Assessment & Plan Assessment & Plan (1) Drug-induced gynecomastia: Code(s): N62 - Hypertrophy of breast; T50.905A - Adverse effect of unspecified drugs, medicaments and biological substances, initial encounter Category: Medical Plan 34-year-old male patient status post bilateral lumpectomy for gynecomastia. There is a hematoma noted in the left breast which corresponds to the patient's concern for a residual lump in the left breast. No residual gynecomastia is noted at this time. I recommended applying warm compresses to the chest wall daily. He should return in 1 month for follow-up examination. Coding Level of Care Code Global (43999) Diagnoses Drug-induced gynecomastia N62; T50.903F
[2025-05-17 14:39] VITALS: BP 141/67; PULSE 86; BMI 35.6
--- OUTSIDE RECORDS SUMMARY | 2025-05-17 17:40 | XMS_ITS | Clinical Summary ---
Author Organization [facility] Address [address] [place] [phone] Phone Care Team Providers Care Sheriff'S Sergeant Name Role Phone John Mcintosh MD Primary [...] VACCINE (#1) 2025 COVID-19 VACCINE ( - 2024-2 6 season) 2025 LIPID PANEL 10/21/2026 10/21/2021 HEPATITIS [...] topic Medical Devices Not on file Insurance [facility] C3 ACO C3 ACO [facility] C3 ACO Care Teams Sheriff'S Sergeant Relationship Specialty Start Date End Date John Mcintosh MD PCP - General Internal Medicine 09/03/24 Additional Source Comments The information contained in this document represents components of the legal health record. It is not the complete legal health record.[facility]
--- OUTSIDE RECORDS SUMMARY | 2025-05-17 17:40 | XMS_ITS | Clinical Summary ---
Author Organization [employer] Address [address] [place] [address] [address] [place] [address] Care Team Providers Care Business Relationship Manager Name Role Phone John Mcintosh MD Primary Care Provider Allergies No known active allergies Active Problems Problem Noted Date Diagnosed Date Vitamin D deficiency 10/25/2021 Hypogonadism in male 10/25/2021 Encounters Date Type Department Care Team Description 05/10/2025 Orders Only GENERIC EXTERNAL DATA DEPARTMENT Provider, Generic External Data 04/05/2025 Telephone [facility] [address] [place] [address] John Mcintosh MD Appointment Request 03/20/2025 Telephone [facility] MEDICINE [address] [place], [place] [phone] John Mcintosh MD Referral from Last 3 [...] Procedure Name Priority Date/Time Associated Diagnosis Comments GROSS AND MICROSCOPIC LEVEL 5 Routine 05/10/2025 8:13 AM EDT LIPID PANEL, STANDARD Routine 10/21/2021 11:37 AM EDT from Last 3 Months or Most Recently Relevant to Health Maintenance Results * Gross and Microscopic Level 5 (05/10/2025 8:13 AM EDT) 05/10/2025 8:13 AM EDT 05/10/2025 9:30 AM EDT [facility] LABS - 05/11/2025 1:20 PM EDT ----- ------- Name: Jd Shah Age/Sex: 34/M : 1990 Unit#: [id number] Attend Dr: Jairo Stewart MD Re05/10/25 Status: [facility] Location: [facility] Disch: ----- ------- SPEC : [id number] RECD: 05/10/25 STATUS: LEX JAVIER NUM: [id number] GOVIND: 05/10/[address] [facility] [address]: Jairo Stewart MD ENTERED: 05/10/25 SP TYPE: Surgical OTHR DR: John Mcintosh MD ORDERED: Gross Micro L5/2 Diagnosis A. Breast, left, excision: Features consistent with gynecomastia. B. Breast, right, excision: Predominantly fatty breast parenchyma with focal features of gynecomastia. Clinical History Adverse effect of unspecified drugs, medicaments Microscopic Description Microscopic sections reviewed. Material Received A. Left breast gynecomastia B. Right breast gynecomastia Gross Description A. Received in formalin is a 5.2 x 2.5 x 2.5 cm portion of fibrofatty soft tissue, sectioned to reveal pale yellow soft adipose tissue with interspersed white-pink dense fibrous tissue. Discrete lesions are not apparent. Warehouse Team Member sections are submitted in cassettes A1-2. B. Received in formalin is a 5.0 x 3.5 x 1.7 cm portion of fibrofatty soft tissue, sectioned to reveal pale yellow soft adipose tissue with interspersed white-pink dense fibrous tissue. Discrete lesions are not apparent. Warehouse Team Member sections are submitted in cassettes B1-2. (DTL) IHC S/NG Disclaimer NOTE: Unless otherwise stated, all tissue is formalin-fixed and paraffin-embedded. Some or all of the immunohistochemical tests reported herein may have been developed and their performance characteristics determined by [facility]. They have not been cleared or approved by the U.S. Food and Drug Administration (FDA). However, the FDA has determined that such clearance or approval is not necessary. This laboratory is certified under the Clinical Laboratory Improvement Amendments of 1988 (CLIA) as qualified to perform high complexity clinical laboratory testing. CONTINUED ON NEXT PAGE ----- ------- Name: Jd Shah Age/Sex: 34/M : 1990 Unit#: [id number] Attend Dr: Jairo Stewart MD Re05/10/25 Status: [facility] Location: [facility] Disch: ----- ------- SPEC : [id number] RECD: 05/10/25 STATUS: LEX JAVIER NUM: [id number] GOVIND: 05/10/[address] [facility] [address]: Jairo Stewart MD ENTERED: 05/10/25 SP TYPE: Surgical OTHR DR: John Mcintosh MD ORDERED: Gross Micro L5/2 Copies To: John Mcintosh MD [address] [phone] Jairo Stewart MD [facility] General Surgeons [address] [place] [phone] ----- ------- Signed (signature on file) Lata Street MD 05/11/25 1320 ----- ------- END OF REPORT us Generic External Data Provider LAB BLOOD ORDERAB LES Final Result [facility] [address] [place] [address] [phone] * LIPID PANEL, STANDARD (10/21/2021 11:37 AM EDT) Chol/HDLC Ratio 2.5 <5.0 (calc) [facility] Cholesterol, Total 114 <200 mg/dL [facility] HDL Cholesterol 45 > OR = 40 mg/dL [facility] LDL Cholesterol 54 mg/dL (calc) [facility] Comment: Reference range: <100 Desirable range <100 mg/dL for primary prevention; <70 mg/dL for patients with CHD or diabetic patients with > or = 2 CHD risk factors. LDL-C is now calculated using the Altaf calculation, which is a validated novel method providing better accuracy than the Friedewald equation in the estimation of LDL-C. Corona SS et al. LISANDRO. 2013;310(19): 3428-2887 (http://education.[employer]/faq/TUM519) Non-HDL Cholesterol 69 <130 mg/dL (calc) [facility] Comment: For patients with diabetes plus 1 major ASCVD risk factor, treating to a non-HDL-C goal of <100 mg/dL (LDL-C of <70 mg/dL) is considered a therapeutic option. Triglycerides 72 <150 mg/dL [facility] 10/21/2021 11:3 7 AM EDT us John Mcintosh MD LAB BLOOD ORDERABLES Final Result [facility] [address] from Last 3 Months or Most Recently Relevant to Health Maintenance Insurance [facility] C3 Care Teams Business Relationship Manager Relationship Specialty Start Date End Date John Mcintosh MD [address] [place] [phone] PCP - General Internal Medicine 04/12/19
--- OUTSIDE RECORDS SUMMARY | 2025-05-17 17:40 | XMS_ITS | Encounter Summary ---
Author Organization [employer] Address [address] [place] [address] [address] [place] [address] Care Team Providers Care Silver Lap Machine Tender Name Role Phone John Mcintosh MD Primary Care Provider Encounter Details Date Type Department Care Team ([facility] st Contact Info) Description 10/15/2022 Orders Only [facility] [address] [place], [place] [id number] John Mcintosh MD [address] [place] [address] Hypogonadism in male (Primary Dx) Social History [...] Total 0.30 < OR = 4.00 ng/mL [employer] Comment: The total PSA value from this assay system is standardized against the WHO standard. The test result will be approximately 20% lower when compared to the equimolar-standardized total PSA (Madison Earl). Comparison of serial PSA results should be [...] LAB BLOOD ORDERABLES Final Result [facility] [address], [place] [address] [employer] [address] [place] [address] * (ABNORMAL) LH (10/15/2022 9:01 AM EDT) LH 1.1(L) 1.5 - 9.3 mIU/mL [employer] Blood Venous blood specimen / Unknown 10/15/2022 9:01 AM EDT 10/15/2022 9:02 AM EDT Narrative [facility] - 10/20/2022 3:48 PM EDT PATIENT REFUSED SOME TESTING; PATIENT ENCOURAGED TO RETURN. John Mcintosh MD LAB BLOOD ORDERABLES Final Result Performing Organization Address City/[facility]/ZIP Co de Phone Number [address] [place] [address] [phone] [employer] [address] [place] [phone] * Sex Hormone Binding Globulin (SHBG) (10/15/2022 9:01 AM EDT) Sex Hormone Binding Globulin 12 10 - 50 nmol/L [employer] Blood Venous blood specimen / Unknown 10/15/2022 9:01 AM EDT 10/15/2022 9:02 AM EDT Narrative [facility] - 10/20/2022 3:48 PM EDT PATIENT REFUSED SOME TESTING; PATIENT ENCOURAGED TO RETURN. us John Mcintosh MD LAB BLOOD ORDERABLES Final Result Performing Organization Address City/[facility]/ZIP Co de Phone Number [address] [phone] [employer] [place] [employer] [address] [place] [phone] * Prolactin (10/15/2022 9:01 AM EDT) Prolactin 7.7 2.0 - 18.0 ng/mL [employer] [place] [employer] Blood Venous blood specimen / Unknown 10/15/2022 9:01 AM EDT 10/15/2022 9:02 AM EDT Narrative [facility] - 10/20/2022 3:48 PM EDT PATIENT REFUSED SOME TESTING; PATIENT ENCOURAGED TO RETURN. John Mcintosh MD LAB BLOOD ORDERABLES Final Result Performing Organization Address [facility] Co de Phone Number [address], [facility] [place] [address] [employer] [facility] [address] [place] [address] * FSH (10/15/2022 9:01 AM EDT) Pathologist [facility] FSH 3.5 1.6 - 8.0 mIU/mL [employer] [place] [employer] Blood Venous blood specimen / Unknown 10/15/2022 9:01 AM EDT 10/15/2022 9:02 AM EDT [facility] - 10/20/2022 3:48 PM EDT PATIENT REFUSED SOME TESTING; PATIENT ENCOURAGED TO RETURN. John Mcintosh MD LAB BLOOD ORDERABLES Final Result Performing Organization Address [facility] de Phone Number [address], [place] [address] [employer] [facility] [address] [place] [phone] * Estradiol (10/15/2022 9:01 AM EDT) [facility] Estradiol <15 < OR = 39 pg/mL [employer] [place] [employer] Comment: Reference range established on post-pubertal patient population. No pre-pubertal reference range established using this assay. For any patients for whom low Estradiol levels are anticipated (e.g. males, pre-pubertal children and hypogonadal/post-menopausal females), the [employer] [facility] Estradiol, Ultrasensitive, LCMSMS assay is recommended (order code 54088). Please note: patients being treated with the drug fulvestrant (Faslodex(R)) have demonstrated significant interference in immunoassay methods for estradiol measurement. The cross reactivity could lead to falsely elevated estradiol test results leading to an inappropriate clinical assessment of estrogen status. [employer] order code [id number], Ultrasensitive LC/MS/MS demonstrates negligible cross reactivity with fulvestrant. Blood Venous blood specimen / Unknown 10/15/2022 9:01 AM EDT 10/15/2022 9:02 AM EDT Narrative [facility] - 10/20/2022 3:48 PM EDT PATIENT REFUSED SOME TESTING; PATIENT ENCOURAGED TO RETURN. us John Mcintosh MD LAB BLOOD ORDERABLES Final Result [facility] [address], [place] [address] [employer] [facility] [address] [place] [address] * (ABNORMAL) Testosterone, Free (Dialysis) And Total, MS (10/15/2022 9:01 AM EDT) Pathologist [facility] Testosterone, Total, MS 48(L) 250 - 1,100 ng/dL [employer] [facility] Comment: For additional information, please refer to http://education.Cangrade/faq/ [email or web address] (This link is being provided for informational/ educational purposes only.) This test was developed and its analytical performance characteristics have been determined by [facility] [place], [place]. It has not been cleared or approved by the U.S. Food and Drug Administration. This assay has been validated pursuant to the CLIA regulations and is used for clinical purposes. Testosterone, Free 9.7(L) 35.0 - 155.0 pg/mL [employer] [facility] Comment: This test was developed and its analytical performance characteristics have been determined by [facility] [place], [place]. It has not been cleared or [...] LAB BLOOD ORDERABLES Final Result [facility] [address] [facility], [place] [address] [facility] [address] [facility] [place] [place] [address] documented in this encounter Visit Diagnoses Diagnosis Hypogonadism in male- Primary documented in this encounter Care Teams Silver Lap Machine Tender Relationship Specialty Start Date End Date John Mcintosh MD [address] [place] [phone] PCP - General Internal Medicine 04/12/19 documented as of this encounter
== END 2025-05-17 14:50 | disposition home or self-care (01) ==
LOC: HO.HGS 14:32
PROVIDERS: PCP Internal Medicine; Visit Provider Surgery
DX: N62 Hypertrophy of breast (principal); T50.905A Adverse effect of unspecified drugs, medicaments and biological substances, initial encounter
CPT/HCPCS: 99024

== ENCOUNTER → 2025-05-17 14:31 | Outpatient (BNVA) | payer MEDICAID, SELFPAY | PROVIDERS: PCP Internal Medicine; Visit Provider Surgery | DX: N62 Hypertrophy of breast (principal); T50.905D Adverse effect of unspecified drugs, medicaments and biological substances, subsequent encounter | CPT/HCPCS: 99212 ==

== ENCOUNTER 2025-06-26 10:51 | Outpatient (AMB) | payer MEDICAID, SELFPAY ==
--- NOTE | 2025-06-26 10:54 | MHC.OFFVIS ---
Vital Signs 06/26/25 10:58 Height 6 ft 1 in Weight 268 lb 15.423 oz BMI 35.5 Respiration 16 Intake Visit Reasons: 1 month post bilateral lumpectomy Intake Note: Patient is seen in office for one month follow up visit, post bilateral lumpectomy. Pt c/o: admits to decrease in swelling, states an internal stitch is poking out Quality Assurance Lead Required: No Accompanied by: Self / Same As Patient Allergies No Known Allergies (No Known Allergies*) Allergy (Verified 06/26/25 10:58) Medication List - Last Reconciled 06/26/25 by Jairo Stewart MD anastrozole 0.5 mg (1/2 x 1 mg) PO 2XW ibuprofen 400 mg PO Q6H PRN needle (disp) 18 G (BD Regular [place] [place]) As directed needle (disp) 18 G (BD Regular [place]vel [place]) As directed - draw up testosterone needle (disp) 22 G (BD Regular [place]vel [place]) For testosterone injection weekly oxycodone 5 mg PO Q6H PRN safety needles (Easy Touch FlipLock Needle) As directed - administer testosterone syringe (disposable) (BD Luer-Amie Syringe) Testosterone injection weekly testosterone cypionate (Depo-Testosterone) 100 mg (0.5 mL) IM QWEEK 4 weeks HPI Comments Details: Patient returns for a follow-up check following bilateral gynecomastia excisions. He feels the left breast is much improved with decreased swelling and no further bruising. He does note to areas of sutures exposed in the right breast but denies any bleeding or discharge. He denies any further breast pain. [facility] Medical History Arthritis Carpal tunnel syndrome on both sides Nephrolithiasis Surgical History History of lumpectomy of both breasts (05/10/25) H/O hernia repair Social History Patient Tobacco Use Status: Never used Tobacco Physical Exam Vital Signs: Last Vital Signs Resp 16 06/26/25 10:58 BMI result Body Mass Index 35.5 Const General: comfortable Nutritional Appearance: well nourished Orientation/consciousness: patient oriented x3 Chest Other: Bilateral periareolar incisions are clean, dry, and intact. To spit sutures were noted in the right incision for easily removed with a forceps. No palpable mass/hematoma is identified. Neuro General: patient oriented x3 Assessment & Plan Assessment & Plan (1) Drug-induced gynecomastia: Code(s): N62 - Hypertrophy of breast; T50.903O - Adverse effect of unspecified drugs, medicaments and biological substances, initial encounter Category: Medical Plan Patient returns for final wound check. Incisions are clean and intact. Two small remnants of Polysorb suture were removed without difficulty today. Left breast is much improved from his previous examination. No further surgical intervention is recommended at this time. Should follow up as needed. Coding Level of Care Code Global (21707) Diagnoses Drug-induced gynecomastia N62; T50.905H
[2025-06-26 10:58] VITALS: RESP 16; BMI 35.5
== END 2025-06-26 11:43 | disposition home or self-care (01) ==
LOC: HO.HGS 10:51
PROVIDERS: PCP Internal Medicine; Visit Provider Surgery
DX: N62 Hypertrophy of breast (principal); T50.905A Adverse effect of unspecified drugs, medicaments and biological substances, initial encounter
CPT/HCPCS: 99024

== ENCOUNTER → 2025-06-26 10:51 | Outpatient (BNVA) | payer MEDICAID, SELFPAY | PROVIDERS: PCP Internal Medicine; Visit Provider Surgery | DX: Z48.816 Encounter for surgical aftercare following surgery on the genitourinary system (principal); N62 Hypertrophy of breast; T50.905A Adverse effect of unspecified drugs, medicaments and biological substances, initial encounter | CPT/HCPCS: 99212 ==